=== PATIENT | female | born 1935 | race Caucasian/White ===

== ENCOUNTER 2016-12-12 16:27 | Inpatient (IN) | payer MEDICARE, MEDICAID ==
[2016-12-12 16:27] VITALS: BMI 37.8
[2016-12-12] MEDS ORDERED: Sodium Chloride 0.9% 500 ML IV ONE ×2 (16:55→17:07)
[2016-12-12 17:09] LABS: BASO % 0.2 % (0.0-2.0); EOS # 0.2 K/uL (0.0-0.7); EOS % 1.4 % (0.0-4.0); HEMATOCRIT 32.5 % (34.0-47.0); LYMPH # 1.6 K/uL (1.0-4.3); LYMPH % 11.6 % (20.0-40.0); MEAN CELL VOLUME 77.4 fL (81.0-99.0); MEAN CORPUSCULAR HEMOGLOBIN 23.8 pg (27.0-31.0); MEAN CORPUSCULAR HGB CONC 30.7 g/dL (33.0-37.0); MEAN PLATELET VOLUME 8.7 fL (7.2-11.7); MONO # 0.4 K/uL (0.0-0.8); MONO % 3.1 % (0.0-10.0); RED CELL DISTRIBUTION WIDTH 16.2 % (11.5-14.5); WHITE BLOOD COUNT 13.4 K/uL (4.8-10.8)
[2016-12-12 17:18] LABS: CHLORIDE 102 mmol/L (98-107)
[2016-12-12 17:19] LABS: POTASSIUM 4.8 mmol/L (3.6-5.2); SODIUM 138 mmol/L (132-148)
[2016-12-12 17:21] LABS: ALB/GLOB RATIO 0.8 (1.0-2.1); ALKALINE PHOSPHATASE 98 U/L (38-126); ALT/SGPT 18 U/L (9-52); AST/SGOT 12 U/L (14-36); BILIRUBIN,TOTAL 0.3 mg/dL (0.2-1.3); BLOOD UREA NITROGEN 38 mg/dL (7-17); CALCIUM 8.6 mg/dl (8.6-10.4); CARBON DIOXIDE 25 mmol/L (22-30); GFR AFRICAN-AMERICAN 52; GLUCOSE,RANDOM 289 mg/dL (65-105); TOTAL PROTEIN 6.8 g/dL (6.3-8.3)
--- NOTE | 2016-12-12 17:49 | CT ---
PROCEDURE: CT Abdomen and Pelvis without intravenous contrast HISTORY: Back pain, RUQ pain, dysuria/hematuria COMPARISON: None. TECHNIQUE: CT scan of the abdomen and pelvis was performed without administration of intravenous contrast. Oral contrast was not administered. Coronal and sagittal reformatted images were obtained. Radiation dose: Total exam DLP = 1100.56 mGy-cm. This CT exam was performed using one or more of the following dose reduction techniques: Automated exposure control, adjustment of the mA and/or kV according to patient size, and/or use of iterative reconstruction technique. FINDINGS: LOWER THORAX: The lung bases are clear. LIVER: The the liver is normal in size. No intrahepatic biliary ductal dilatation. GALLBLADDER AND BILE DUCTS: Surgically absent. PANCREAS: Normal in size. No gross lesion or ductal dilatation. SPLEEN: Normal in size. ADRENALS: Both adrenal glands are normal in size without discrete nodule. KIDNEYS AND URETERS: Both kidneys are mildly atrophic and there is nonspecific perinephric fat stranding. There is no hydronephrosis or nephrolithiasis. There is a 7.1 x 6.5 cm rim calcified simple cyst in the upper pole of the left kidney. VASCULATURE: There are atherosclerotic aortoiliac calcifications. No aortic aneurysm. BOWEL: The small bowel loops are normal in caliber. The colon is unremarkable. APPENDIX: Normal appendix. PERITONEUM: No free fluid. No free air. LYMPH NODES: Unremarkable. No enlarged lymph nodes. BLADDER: Unremarkable. REPRODUCTIVE: Unremarkable. BONES: No acute fracture. There is diffuse bone demineralization and multilevel degenerative changes in the spine. OTHER FINDINGS: None. IMPRESSION: 1. No acute abdominal or pelvic abnormality. 2. 7.1 x 6.5 cm rim calcified simple cyst in the upper pole of the left kidney.
[2016-12-12 18:19] LABS: RBC URINE 1630 /hpf (0-3); URINE BACTERIA MOD (<OCC); URINE BILIRUBIN NEGATIVE (NEGATIVE); URINE BLOOD 3+ (NEGATIVE); URINE COLOR Red (YELLOW); URINE GLUCOSE (UA) NORMAL (Normal); URINE HYALINE CAST >20 /lpf (0-2); URINE KETONE NEGATIVE (NEGATIVE); URINE LEUKOCYTE ESTERASE 3+ Leu/uL (Negative); URINE PROTEIN 2+ mg/dL (NEGATIVE); URINE UROBILINOGEN NORMAL mg/dL (0.2-1.0); WBC URINE 326 /hpf (0-5)
[2016-12-12] MEDS ORDERED: cefTRIAXone IV 1 gm in Dextros 50 ML IVPB STA (19:03)
--- NOTE | 2016-12-12 19:21 | C.PDOC ---
Time Seen by Provider: 12/12/16 16:44 Chief Complaint (Nursing): Female Genitourinary History Per: Patient, Family Onset/Duration Of Symptoms: Days (1) Current Symptoms Are (Timing): Still Present Severity: Moderate Location Of Pain/Discomfort: RUQ Radiation Of Pain To:: Back Associated Symptoms: Back Pain, Urinary Symptoms Alleviating Factors: None Additional History Per: Prior Records Past Medical History Reviewed: Historical Data, Nursing Documentation, Vital Signs Vital Signs: Last Vital Signs Temp 98.1 F 12/12/16 16:33 Pulse 90 12/12/16 17:39 Resp 17 12/12/16 17:39 BP 126/58 L 12/12/16 17:39 Pulse Ox 95 12/12/16 17:39 - Medical History PMH: Asthma, CAD, Diabetes, HTN, Hypercholesterolemia Surgical History: Cholecystectomy, Coronary Stent - [facility] Procedures CORONAR ARTERIOGR-2 CATH (08/18/13) ENDO EXCISION/DEST OF LESION OR TISSUE OF STOMACH (04/19/05) ENDO RECTUM POLYPECTOMY (04/01/05) ENDOSC POLYPECTOMY OF LG INTEST (04/01/05) INJECT/INFUSE NEC (08/10/13) INJECT/INFUSE PLATELET INHIBITOR (08/18/13) INSERTION OF ONE VASCULAR STENT (07/30/13) INSERTION OF TWO VASCULAR STENTS (08/18/13) INSRT OF DRUG-ELUTING CORON ARTERY STENTS(S) (08/18/13) LEFT HEART CARDIAC CATH (08/18/13) LT HEART ANGIOCARDIOGRAM (08/18/13) NON-INVASIVE MECHANICAL VENTILATION (08/18/13) OCCUPATIONAL THERAPY (10/18/11) PACKED CELL TRANSFUSION (08/18/13) PERCUTANEOUS TRANSLUMINAL CORONARY ANGIOPLASTY [PTCA] (08/18/13) PHYSICAL THERAPY NEC (10/18/11) PROCEDURE ON SINGLE VESSEL (08/18/13) VACCINATION NEC (08/18/13) Family History: States: Unknown Family Hx - Social History Hx Tobacco Use: No Hx Alcohol Use: No Hx Substance Use: No - Immunization History Hx Tetanus Toxoid Vaccination: No Hx Influenza Vaccination: No Hx Pneumococcal Vaccination: No Review Of Systems Except As Marked, All Systems Reviewed And Found Negative. Constitutional: Positive for: Malaise Cardiovascular: Negative for: Chest Pain Respiratory: Negative for: Shortness of Breath Gastrointestinal: Negative for: Vomiting, Diarrhea Genitourinary: Positive for: Dysuria, Hematuria Musculoskeletal: Positive for: Back Pain. Negative for: Neck Pain Neurological: Negative for: Weakness, Numbness, Seizures, Altered Mental Status Physical Exam - Physical Exam Appears: No Acute Distress Skin: Normal Color, Warm, Dry Head: Atraumatic, Normacephalic Eye(s): bilateral: PERRL, EOMI Neck: Normal ROM, Supple Cardiovascular: Rhythm Regular Respiratory: Normal Breath Sounds, No Accessory Muscle Use Gastrointestinal/Abdominal: Soft, No Tenderness Back: CVA Tenderness (?) Extremity: Normal ROM Neurological/Psych: Oriented x3, Normal Motor, Normal Sensation ED Course And Treatment - Laboratory Results Result Diagrams: 12/12/16 17:01 12/12/16 17:01 Interpretation Of Abnormal: UTI ECG: Interpreted By Me, Viewed By Me ECG Rhythm: Sinus Rhythm, Nonspecific Changes ECG Interpretation: No Acute Changes Rate From EC O2 Sat by Pulse Oximetry: 95 Pulse Ox Interpretation: Normal - CT Scan/US CT Abdomen/pelvis Other Rad Studies (CT/US): Read By Radiologist, Radiology Report Reviewed CT/US Interpretation: IMPRESSION: 1. No acute abdominal or pelvic abnormality. 2. 7.1 x 6.5 cm rim calcified simple cyst in the upper pole of the left kidney. Disposition Discussed With : Radha Ferris Comment: He accepted pt on his service and gave admitting orders to the nurse. Doctor Will See Patient In The: Hospital Counseled Patient/Family Regarding: Studies Performed, Diagnosis - Disposition Disposition: HOSPITALIZED Disposition Time: 19:24 Condition: FAIR - Clinical Impression Clinical Impression: UTI (urinary tract infection), Renal cyst, left, Hematuria
[2016-12-12] MEDS ORDERED: cefTRIAXone IV 1 gm in Dextros 50 ML IVPB ONE (19:23)
[2016-12-12] MEDS ORDERED: Moxifloxacin IV 400mg/250ml NS 400 MG/250 ML BAG IVPB SCH (22:00)
[2016-12-12] MEDS: (Novolog) Insulin Aspart, Recombinant 100 u/ml 10 ml vial SC SCH (23:02)
[2016-12-13] MEDS: (Novolog Mix 70/30) Insulin Aspart/Insulin Aspar 100 units/ml SC SCH ×2 (07:54→16:30)
[2016-12-13] MEDS: (Novolog) Insulin Aspart, Recombinant 100 u/ml 10 ml vial SC SCH ×4 (07:54→22:24)
[2016-12-13] MEDS: Pantoprazole 40 mg EC Tab PO SCH (10:10)
--- NOTE | 2016-12-13 10:30 | CP.PCM.CON ---
History of Present Illness - History of Present Illness History of Present Illness: 81 yo female with hx DMII, CAD, HTN, HLD, OBESITY is admitted with fever and abd pain rx for sepsis in progress believed to be secondary to UTI PMH: Asthma, CAD, Diabetes, HTN, Hypercholesterolemia Surgical History: Cholecystectomy, Coronary Stent Review of Systems - Constitutional Constitutional: Anorexia, Fever, Malaise - EENT Eyes: absent: As Per HPI, Blind Spots, Blurred Vision, Change in Vision, Decreased Night Vision, Diplopia, Discharge, Dry Eye, Exophthalmos, Floaters, Irritation, Itchy Eyes, Loss of Peripheral Vision, Pain, Photophobia, Requires Corrective Lenses, Sees Flashes, Spots in Vision, Tunnel Vision, Other Visual Disturbances, Loss of Vision, Other Ears: absent: As Per HPI, Decreased Hearing, Ear Discharge, Ear Pain, Tinnitus, Abnormal Hearing, Disequilibrium, Dizziness, Other Nose/Mouth/Throat: absent: As Per HPI, Epistaxis, Nasal Congestion, Nasal Discharge, Nasal Obstruction, Nasal Trauma, Nose Pain, Post Nasal Drip, Sinus Pain, Sinus Pressure, Bleeding Gums, Change in Voice, Dental Pain, Dry Mouth, Dysphagia, Halitosis, Hoarsness, Lip Swelling, Mouth Lesions, Mouth Pain, Odynophagia, Sore Throat, Throat Swelling, Tongue Swelling, Facial Pain, Neck Pain, Neck Mass, Other - Breasts Breasts: absent: As Per HPI, Change in Shape, Mass, Pain, Nipple Discharge, Nipple Inversion, Skin Changes, Swelling, Other - Cardiovascular Cardiovascular: absent: As Per HPI, Acrocyanosis, Chest Pain, Chest Pain at Rest , Chest Pain with Activity, Claudication, Diaphoresis, Dyspnea, Dyspnea on Exertion, Edema, Irregular Heart Rhythm, Pain Radiating to Arm/Neck/Jaw, Leg Edema, Leg Ulcers, Lightheadedness, Orthopnea, Palpitations, Paroxysmal Nocturnal Dyspnea, Pedal Edema, Radiating Pain, Rapid Heart Rate, Slow Heart Rate, Syncope, Other - Respiratory Respiratory: absent: As Per HPI, Cough, Dyspnea, Hemoptysis, Dyspnea on Exertion , Wheezing, Snoring, Stridor, Pain on Inspiration, Chest Congestion, Excessive Mucous Production, Change in Mucous Color, Pain with Coughing, Other - Gastrointestinal Gastrointestinal: As Per HPI, Abdominal Pain - Genitourinary Genitourinary: As Per HPI, Change in Urinary Stream, Urinary Frequency - Reproductive: Female Reproductive:Female: absent: As Per HPI, Amenorrhea, Amenorrhea/ Control, Currently Menstual, Cycle <21 Days, Cycle >35 Days, Cycle Variable, Menses 1-7 Days, Menses >/= 8 Days, Menses Variable, Cycle > 4 Weeks Between, No Menses for 6 Months, Heavy Menses, Light Menses, Normal Menses, Spotting Between Cycles , S/P Hysterectomy, Menopausal, Post Menopausal, Premenarche, Abnormal Vaginal Bleeding, Dysmenorrhea, Dyspareunia, Genital Lesions, Genital Pruritis, Pelvic Pain, Prolapse Symptoms, Sexual Dysfunction, Vaginal Discharge, Vaginal Dryness , Vaginal Odor, Vaginal Pruritis, Other - Menstruation Menstruation: absent: As Per HPI, Amenorrhea, Amenorrhea/ Control, Currently Menstual, Cycle <21 Days, Cycle >35 Days, Cycle Variable, Menses 1-7 Days, Menses >/= 8 Days, Menses Variable, Cycle > 4 Weeks Between, No Menses for 6 Months, Heavy Menses, Light Menses, Normal Menses, Spotting Between Cycles , S/P Hysterectomy, Menopausal, Post Menopausal, Premenarche, Abnormal Vaginal Bleeding, Dysmenorrhea, Other - Musculoskeletal Musculoskeletal: Abnormal Gait - Integumentary Integumentary: absent: As Per HPI, Acne, Alopecia, Bleeding Lesions, Change in Hair, Change in Nails, Change in Pigmentation, Changing Lesions, Dry Skin, Erythema, Furuncle, Hirsutism, Lesions, New Lesions, Non-Healing Lesions, Photosensitivity, Pruritus, Rash, Skin Pain, Skin Ulcer, Sores, Striae, Swelling , Unusual Bruising, Wounds, Jaundice, Other - Neurological Neurological: absent: As Per HPI, Abnormal Gait, Abnormal Hearing, Abnormal Movements, Abnormal Speech, Behavioral Changes, Burning Sensations, Confusion, Convulsions, Disequilibrium, Dizziness, Numbness, Focal Weakness, Frequent Falls , Headaches, Lack of Coordination, Loss of Vision, Memory Loss, Paresthesias, Radicular Pain, Restless Legs, Sensory Deficit, Syncope, Tingling, Tremor, Vertigo, Weakness, Other Visual Disturbances, Other - Psychiatric Psychiatric: absent: As Per HPI, Abnormal Sleep Pattern, Anhedonia, Anxiety, Auditory Hallucinations, Behavioral Changes, Change in Appetite, Change in Libido, Confusion, Depression, Difficulty Concentrating, Hallucinations, Homicidal Ideation, Hopelessness, Irritability, Memory Loss, Mood Swings, Panic Attacks, Paranoia, Suicidal Ideation, Visual Hallucinations, Tactile Hallucinations, Other Past Patient History - Infectious Disease Hx of Infectious Diseases: None - Tetanus Immunizations Tetanus Immunization: Unknown - Past Medical History & Family History Past Medical History?: Yes - Past Social History Smoking Status: Never Smoked - CARDIAC Hx Hypercholesterolemia: Yes Hx Hypertension: Yes - PULMONARY Hx Asthma: Yes - NEUROLOGICAL Hx Neurological Disorder: No - HEENT Hx HEENT Problems: No Hx Cataracts: Yes (LASER SURGERY-CATARACT SX) - RENAL Hx Chronic Kidney Disease: No - ENDOCRINE/METABOLIC Hx Endocrine Disorders: Yes (diabetes, takes po and insulin) Hx Diabetes Mellitus Type 1: Yes Hx Diabetes Mellitus Type 2: Yes - HEMATOLOGICAL/ONCOLOGICAL Hx Blood Disorders: No - INTEGUMENTARY Hx Dermatological Problems: No - MUSCULOSKELETAL/RHEUMATOLOGICAL Hx Falls: No - GASTROINTESTINAL Hx Gastrointestinal Disorders: (ABDOMINAL DISTENTION) - GENITOURINARY/GYNECOLOGICAL Hx Genitourinary Disorders: No - PSYCHIATRIC Hx Substance Use: No - SURGICAL HISTORY Hx Cholecystectomy: Yes Hx Coronary Stent: Yes - ANESTHESIA Hx Anesthesia: Yes Hx Anesthesia Reactions: No Hx Malignant Hyperthermia: No Meds Allergies/Adverse Reactions: Allergies Allergy/AdvReac Type Severity Reaction Status Date / Time iodine Allergy ANAPHYLAXIS Verified 12/12/16 16:37 - Medications Medications: Current Medications Aspirin (Aspirin Chewable) 81 mg PO DAILY [facility] Last Admin: 12/13/16 10:09 Dose: 81 mg Clopidogrel Bisulfate (Plavix) 75 mg PO DAILY [facility] Last Admin: 12/13/16 10:10 Dose: 75 mg Furosemide (Lasix) 40 mg PO DAILY [facility] Last Admin: 12/13/16 10:10 Dose: 40 mg Glimepiride (Amaryl) 4 mg PO BID [facility] Last Admin: 12/13/16 10:09 Dose: 4 mg Moxifloxacin HCl (Avelox Iv 400mg/250ml Ns) 400 mg in 250 mls @ 167 mls/hr IVPB Q24H [facility] Last Admin: 12/12/16 23:06 Dose: 167 mls/hr Insulin Aspart (Novolog Mix 70/30 (70/30 Units/Ml)) 20 units SC ACD [facility] Insulin Aspart (Novolog Mix 70/30 (70/30 Units/Ml)) 30 units SC ACB [facility] Last Admin: 12/13/16 07:54 Dose: 30 units Insulin Aspart (Novolog) 0 unit SC ACHS [facility] PRN Reason: Protocol Last Admin: 12/13/16 07:54 Dose: 1 unit Isosorbide Mononitrate (Imdur) 30 mg PO DAILY [facility] Last Admin: 12/13/16 10:09 Dose: 30 mg Losartan Potassium (Cozaar) 50 mg PO DAILY [facility] Last Admin: 12/13/16 10:09 Dose: 50 mg Metformin HCl (Glucophage) 1,000 mg PO BID [facility] Last Admin: 12/13/16 10:10 Dose: 1,000 mg Metoprolol Tartrate (Lopressor) 50 mg PO BID [facility] Last Admin: 12/13/16 10:10 Dose: 50 mg Pantoprazole Sodium (Protonix Ec Tab) 40 mg PO DAILY [facility] Last Admin: 12/13/16 10:10 Dose: 40 mg Rosuvastatin Calcium (Crestor) 10 mg PO HS [facility] Last Admin: 12/12/16 23:06 Dose: 10 mg Tramadol HCl (Ultram) 50 mg PO Q6 PRN PRN Reason: Pain, moderate (4-7) Physical Exam - Constitutional Appears: Toxic, In Acute Distress - Head Exam Head Exam: ATRAUMATIC, NORMAL INSPECTION, NORMOCEPHALIC - Eye Exam Eye Exam: PERRL. absent: Scleral icterus - ENT Exam ENT Exam: Mucous Membranes Dry, Normal External Ear Exam - Neck Exam Neck exam: Negative for: Lymphadenopathy - Respiratory Exam Respiratory Exam: Decreased Breath Sounds, Rhonchi - Cardiovascular Exam Cardiovascular Exam: Tachycardia, REGULAR RHYTHM, +S1, +S2 - GI/Abdominal Exam GI & Abdominal Exam: Diminished Bowel Sounds, Distended, Soft. absent: Tenderness - Rectal Exam Rectal Exam: Deferred - Exam Exam: NORMAL INSPECTION - Extremities Exam Extremities exam: Positive for: pedal pulses present. Negative for: calf tenderness, pedal edema, tenderness - Back Exam Back exam: absent: CVA tenderness (L), CVA tenderness (R), paraspinal tenderness - Neurological Exam Neurological exam: Alert, CN II-XII Intact, Oriented x3, Reflexes Normal - Psychiatric Exam Psychiatric exam: Depressed - Skin Skin Exam: Dry, Intact Results - Vital Signs Recent Vital Signs: Last Vital Signs Temp 97.8 F 12/13/16 07:46 Pulse 79 12/13/16 07:46 Resp 20 12/13/16 07:46 BP 112/69 12/13/16 10:10 Pulse Ox 97 12/13/16 07:46 - Labs Result Diagrams: 12/12/16 17:01 12/12/16 17:01 Labs: Laboratory Results - last 24 hr 12/12/16 12/13/16 22:57 07:05 POC Glucose (mg/dL) 307 H 189 H Assessment & Plan (1) Hematuria Status: Acute (2) Renal cyst, left Status: Acute (3) UTI (urinary tract infection) Status: Acute - Assessment and Plan (Free Text) Assessment: await imaging, eval cont IV antibiotics
[2016-12-13] MEDS ORDERED: Aluminum Hydroxide/Magnesium Hydroxide Susp (30 mL) PO ONE (12:00)
[2016-12-13] MEDS: Cefepime IV 1 gm in Dextrose 1 GM/50 ML BAG IVPB SCH ×2 (12:05→22:25)
--- NOTE | 2016-12-13 15:43 | CP.PCM.CON ---
Past Patient History - Infectious Disease Hx of Infectious Diseases: None - Tetanus Immunizations Tetanus Immunization: Unknown - Past Medical History & Family History Past Medical History?: Yes - Past Social History Smoking Status: Never Smoked - CARDIAC Hx Cardiac Disorders: Yes Hx Hypercholesterolemia: Yes Hx Hypertension: Yes - PULMONARY Hx Asthma: Yes - NEUROLOGICAL Hx Neurological Disorder: No - HEENT Hx HEENT Problems: No Hx Cataracts: Yes (LASER SURGERY-CATARACT SX) - RENAL Hx Chronic Kidney Disease: No - ENDOCRINE/METABOLIC Hx Diabetes Mellitus Type 1: Yes (PER PATIENT TAKES INSULIN) - HEMATOLOGICAL/ONCOLOGICAL Hx Blood Disorders: No - INTEGUMENTARY Hx Dermatological Problems: No - MUSCULOSKELETAL/RHEUMATOLOGICAL Hx Arthritis: Yes (BACK; HIP AND KNEES) - GASTROINTESTINAL Hx Gastrointestinal Disorders: (ABDOMINAL DISTENTION) - GENITOURINARY/GYNECOLOGICAL Hx Genitourinary Disorders: No - PSYCHIATRIC Hx Substance Use: No - SURGICAL HISTORY Hx Cholecystectomy: Yes Hx Coronary Stent: Yes - ANESTHESIA Hx Anesthesia: Yes Hx Anesthesia Reactions: No Hx Malignant Hyperthermia: No Meds Allergies/Adverse Reactions: Allergies Allergy/AdvReac Type Severity Reaction Status Date / Time iodine Allergy ANAPHYLAXIS Verified 12/12/16 16:37 - Medications Medications: Current Medications Aspirin (Aspirin Chewable) 81 mg PO DAILY [facility] Last Admin: 12/13/16 10:09 Dose: 81 mg Clopidogrel Bisulfate (Plavix) 75 mg PO DAILY [facility] Last Admin: 12/13/16 10:10 Dose: 75 mg Furosemide (Lasix) 40 mg PO DAILY [facility] Last Admin: 12/13/16 10:10 Dose: 40 mg Glimepiride (Amaryl) 4 mg PO BID [facility] Last Admin: 12/13/16 10:09 Dose: 4 mg Cefepime HCl (Maxipime Iv 1 Gm Premix) 1 gm in 50 mls @ 100 mls/hr IVPB Q12H [facility] Last Admin: 12/13/16 12:05 Dose: 100 mls/hr Insulin Aspart (Novolog Mix 70/30 (70/30 Units/Ml)) 20 units SC ACD [facility] Insulin Aspart (Novolog Mix 70/30 (70/30 Units/Ml)) 30 units SC ACB [facility] Last Admin: 12/13/16 07:54 Dose: 30 units Insulin Aspart (Novolog) 0 unit SC ACHS [facility] PRN Reason: Protocol Last Admin: 12/13/16 12:05 Dose: 1 unit Isosorbide Mononitrate (Imdur) 30 mg PO DAILY [facility] Last Admin: 12/13/16 10:09 Dose: 30 mg Losartan Potassium (Cozaar) 50 mg PO DAILY [facility] Last Admin: 12/13/16 10:09 Dose: 50 mg Metformin HCl (Glucophage) 1,000 mg PO BID [facility] Last Admin: 12/13/16 10:10 Dose: 1,000 mg Metoprolol Tartrate (Lopressor) 50 mg PO BID [facility] Last Admin: 12/13/16 10:10 Dose: 50 mg Pantoprazole Sodium (Protonix Ec Tab) 40 mg PO DAILY [facility] Last Admin: 12/13/16 10:10 Dose: 40 mg Rosuvastatin Calcium (Crestor) 10 mg PO [facility] Last Admin: 12/12/16 23:06 Dose: 10 mg Tramadol HCl (Ultram) 50 mg PO Q6 PRN PRN Reason: Pain, moderate (4-7) Last Admin: 12/13/16 10:43 Dose: 50 mg Results - Vital Signs Recent Vital Signs: Last Vital Signs Temp 97.8 F 12/13/16 07:46 Pulse 88 12/13/16 14:56 Resp 20 12/13/16 07:46 BP 112/69 12/13/16 10:10 Pulse Ox 97 12/13/16 14:56 - Labs Result Diagrams: 12/12/16 17:01 12/12/16 17:01 Labs: Laboratory Results - last 24 hr 12/12/16 12/13/16 12/13/16 22:57 07:05 11:27 POC Glucose (mg/dL) 307 H 189 H 187 H
--- NOTE | 2016-12-13 16:05 | CP.PCM.HP ---
Past Patient History - Infectious Disease Hx of Infectious Diseases: None - Tetanus Immunizations Tetanus Immunization: Unknown - Past Medical History & Family History Past Medical History?: Yes - Past Social History Smoking Status: Never Smoked - CARDIAC Hx Cardiac Disorders: Yes Hx Hypercholesterolemia: Yes Hx Hypertension: Yes - PULMONARY Hx Asthma: Yes - NEUROLOGICAL Hx Neurological Disorder: No - HEENT Hx HEENT Problems: No Hx Cataracts: Yes (LASER SURGERY-CATARACT SX) - RENAL Hx Chronic Kidney Disease: No - ENDOCRINE/METABOLIC Hx Diabetes Mellitus Type 1: Yes (PER PATIENT TAKES INSULIN) - HEMATOLOGICAL/ONCOLOGICAL Hx Blood Disorders: No - INTEGUMENTARY Hx Dermatological Problems: No - MUSCULOSKELETAL/RHEUMATOLOGICAL Hx Arthritis: Yes (BACK; HIP AND KNEES) - GASTROINTESTINAL Hx Gastrointestinal Disorders: (ABDOMINAL DISTENTION) - GENITOURINARY/GYNECOLOGICAL Hx Genitourinary Disorders: No - PSYCHIATRIC Hx Substance Use: No - SURGICAL HISTORY Hx Cholecystectomy: Yes Hx Coronary Stent: Yes - ANESTHESIA Hx Anesthesia: Yes Hx Anesthesia Reactions: No Hx Malignant Hyperthermia: No Meds Allergies/Adverse Reactions: Allergies Allergy/AdvReac Type Severity Reaction Status Date / Time iodine Allergy ANAPHYLAXIS Verified 12/12/16 16:37 Physical Exam - Constitutional Appears: Well - Head Exam Head Exam: ATRAUMATIC, NORMAL INSPECTION, NORMOCEPHALIC - Eye Exam Eye Exam: EOMI, Normal appearance, PERRL Pupil Exam: NORMAL ACCOMODATION, PERRL - ENT Exam ENT Exam: Mucous Membranes Moist, Normal Exam - Neck Exam Neck exam: Positive for: Normal Inspection - Respiratory Exam Respiratory Exam: Decreased Breath Sounds - Cardiovascular Exam Cardiovascular Exam: REGULAR RHYTHM, +S1, +S2 - GI/Abdominal Exam GI & Abdominal Exam: Diminished Bowel Sounds, Soft - Rectal Exam Rectal Exam: Deferred Results - Vital Signs Recent Vital Signs: Last Vital Signs Temp 97.8 F 12/13/16 07:46 Pulse 88 12/13/16 14:56 Resp 20 12/13/16 07:46 BP 112/69 12/13/16 10:10 Pulse Ox 97 12/13/16 14:56 - Labs Result Diagrams: 12/12/16 17:01 12/12/16 17:01 Labs: Laboratory Results - last 24 hr 12/12/16 12/13/16 12/13/16 22:57 07:05 11:27 POC Glucose (mg/dL) 307 H 189 H 187 H
--- NOTE | 2016-12-14 07:54 | CARD ---
APPROVED REPORT EKG Measurement Heart [id number] ID [id number] <Conclusion> Sinus rhythm with occasional ventricular-paced complexes Low voltage QRS Possible Inferior infarct, age undetermined Abnormal ECG
[2016-12-14] MEDS: (Novolog) Insulin Aspart, Recombinant 100 u/ml 10 ml vial SC SCH ×4 (08:17→22:35)
[2016-12-14] MEDS: (Novolog Mix 70/30) Insulin Aspart/Insulin Aspar 100 units/ml SC SCH ×2 (08:19→16:30)
[2016-12-14] MEDS: Pantoprazole 40 mg EC Tab PO SCH (09:33)
[2016-12-14] MEDS: Cefepime IV 1 gm in Dextrose 1 GM/50 ML BAG IVPB SCH ×2 (13:23→22:33)
[2016-12-14 14:16] LABS: BASO % 0.4 % (0.0-2.0); EOS # 0.2 K/uL (0.0-0.7); EOS % 2.2 % (0.0-4.0); HEMATOCRIT 32.5 % (34.0-47.0); LYMPH # 1.6 K/uL (1.0-4.3); LYMPH % 15.8 % (20.0-40.0); MEAN CELL VOLUME 78.1 fL (81.0-99.0); MEAN CORPUSCULAR HEMOGLOBIN 24.5 pg (27.0-31.0); MEAN CORPUSCULAR HGB CONC 31.3 g/dL (33.0-37.0); MEAN PLATELET VOLUME 8.4 fL (7.2-11.7); MONO # 0.5 K/uL (0.0-0.8); MONO % 4.7 % (0.0-10.0); NRBC % 0.1 % (0.0-2.0); RED CELL DISTRIBUTION WIDTH 15.9 % (11.5-14.5); WHITE BLOOD COUNT 10.1 K/uL (4.8-10.8)
[2016-12-14 14:24] LABS: POTASSIUM 4.6 mmol/L (3.6-5.2)
[2016-12-14 14:27] LABS: ALB/GLOB RATIO 0.9 (1.0-2.1); BILIRUBIN,TOTAL 0.4 mg/dL (0.2-1.3); CALCIUM 8.8 mg/dl (8.6-10.4); TOTAL PROTEIN 6.5 g/dL (6.3-8.3)
--- NOTE | 2016-12-14 14:57 | CP.PCM.PN ---
Subjective - Date & Time of Evaluation Date of Evaluation: 12/14/16 Time of Evaluation: 14:57 Objective - Vital Signs/Intake and Output Vital Signs (last 24 hours): Temp Pulse Resp BP Pulse Ox 98.5 F 70 20 130/70 97 12/14/16 07:00 12/14/16 07:00 12/14/16 07:00 12/14/16 09:33 12/14/16 07:00 Intake and Output: 12/14/16 12/14/16 06:59 18:59 Intake Total 550 900 Balance 550 900 - Medications Medications: Current Medications Aspirin (Aspirin Chewable) 81 mg PO DAILY [facility] Last Admin: 12/14/16 09:34 Dose: 81 mg Clopidogrel Bisulfate (Plavix) 75 mg PO DAILY [facility] Last Admin: 12/14/16 09:33 Dose: 75 mg Furosemide (Lasix) 40 mg PO DAILY [facility] Last Admin: 12/14/16 09:33 Dose: 40 mg Glimepiride (Amaryl) 4 mg PO BID [facility] Last Admin: 12/14/16 09:32 Dose: 4 mg Cefepime HCl (Maxipime Iv 1 Gm Premix) 1 gm in 50 mls @ 100 mls/hr IVPB Q12H [facility] Last Admin: 12/14/16 13:23 Dose: 100 mls/hr Insulin Aspart (Novolog Mix 70/30 (70/30 Units/Ml)) 20 units SC ACD [facility] Last Admin: 12/13/16 16:30 Dose: 20 units Insulin Aspart (Novolog Mix 70/30 (70/30 Units/Ml)) 30 units SC ACB [facility] Last Admin: 12/14/16 08:19 Dose: 30 units Insulin Aspart (Novolog) 0 unit SC ACHS [facility] PRN Reason: Protocol Last Admin: 12/14/16 13:26 Dose: 1 unit Isosorbide Mononitrate (Imdur) 30 mg PO DAILY [facility] Last Admin: 12/14/16 10:30 Dose: 30 mg Losartan Potassium (Cozaar) 50 mg PO DAILY [facility] Last Admin: 12/14/16 09:32 Dose: 50 mg Metformin HCl (Glucophage) 1,000 mg PO BID [facility] Last Admin: 12/14/16 09:32 Dose: 1,000 mg Metoprolol Tartrate (Lopressor) 50 mg PO BID [facility] Last Admin: 12/14/16 09:33 Dose: 50 mg Pantoprazole Sodium (Protonix Ec Tab) 40 mg PO DAILY [facility] Last Admin: 12/14/16 09:33 Dose: 40 mg Rosuvastatin Calcium (Crestor) 10 mg PO HS [facility] Last Admin: 12/13/16 22:21 Dose: 10 mg Tramadol HCl (Ultram) 50 mg PO Q6 PRN PRN Reason: Pain, moderate (4-7) Last Admin: 12/13/16 10:43 Dose: 50 mg - Labs Labs: 12/14/16 14:04 12/14/16 14:04 PT 11.5 SECONDS (9.7-12.2) 12/12/16 17:01 INR 1.0 12/12/16 17:01 APTT 22 SECONDS (21-34) 12/12/16 17:01
--- NOTE | 2016-12-14 15:26 | CP.PCM.PN ---
Subjective - Date & Time of Evaluation Date of Evaluation: 12/14/16 Time of Evaluation: 09:00 - Subjective Subjective: clinically same Objective - Vital Signs/Intake and Output Vital Signs (last 24 hours): Temp Pulse Resp BP Pulse Ox 98.5 F 70 20 130/70 97 12/14/16 07:00 12/14/16 07:00 12/14/16 07:00 12/14/16 15:08 12/14/16 07:00 Intake and Output: 12/14/16 12/14/16 06:59 18:59 Intake Total 550 900 Balance 550 900 - Medications Medications: Current Medications Aspirin (Aspirin Chewable) 81 mg PO DAILY [facility] Last Admin: 12/14/16 09:34 Dose: 81 mg Clopidogrel Bisulfate (Plavix) 75 mg PO DAILY [facility] Last Admin: 12/14/16 09:33 Dose: 75 mg Furosemide (Lasix) 40 mg PO DAILY [facility] Last Admin: 12/14/16 09:33 Dose: 40 mg Glimepiride (Amaryl) 4 mg PO BID [facility] Last Admin: 12/14/16 09:32 Dose: 4 mg Cefepime HCl (Maxipime Iv 1 Gm Premix) 1 gm in 50 mls @ 100 mls/hr IVPB Q12H [facility] Last Admin: 12/14/16 13:23 Dose: 100 mls/hr Insulin Aspart (Novolog Mix 70/30 (70/30 Units/Ml)) 20 units SC ACD [facility] Last Admin: 12/13/16 16:30 Dose: 20 units Insulin Aspart (Novolog Mix 70/30 (70/30 Units/Ml)) 30 units SC ACB [facility] Last Admin: 12/14/16 08:19 Dose: 30 units Insulin Aspart (Novolog) 0 unit SC ACHS [facility] PRN Reason: Protocol Last Admin: 12/14/16 13:26 Dose: 1 unit Isosorbide Mononitrate (Imdur) 30 mg PO DAILY [facility] Last Admin: 12/14/16 10:30 Dose: 30 mg Losartan Potassium (Cozaar) 50 mg PO DAILY [facility] Last Admin: 12/14/16 09:32 Dose: 50 mg Metformin HCl (Glucophage) 1,000 mg PO BID [facility] Last Admin: 12/14/16 09:32 Dose: 1,000 mg Metoprolol Tartrate (Lopressor) 50 mg PO BID [facility] Last Admin: 12/14/16 09:33 Dose: 50 mg Pantoprazole Sodium (Protonix Ec Tab) 40 mg PO DAILY [facility] Last Admin: 12/14/16 09:33 Dose: 40 mg Rosuvastatin Calcium (Crestor) 10 mg PO HS [facility] Last Admin: 12/13/16 22:21 Dose: 10 mg Tramadol HCl (Ultram) 50 mg PO Q6 PRN PRN Reason: Pain, moderate (4-7) Last Admin: 12/13/16 10:43 Dose: 50 mg - Labs Labs: 12/14/16 14:04 12/14/16 14:04 PT 11.5 SECONDS (9.7-12.2) 12/12/16 17:01 INR 1.0 12/12/16 17:01 APTT 22 SECONDS (21-34) 12/12/16 17:01 - Constitutional Appears: Well - Head Exam Head Exam: ATRAUMATIC, NORMAL INSPECTION, NORMOCEPHALIC - Eye Exam Eye Exam: EOMI, Normal appearance, PERRL Pupil Exam: NORMAL ACCOMODATION, PERRL - ENT Exam ENT Exam: Mucous Membranes Moist, Normal Exam - Neck Exam Neck Exam: Full ROM, Normal Inspection. absent: Lymphadenopathy - Respiratory Exam Respiratory Exam: Decreased Breath Sounds - Cardiovascular Exam Cardiovascular Exam: REGULAR RHYTHM, +S1, +S2 - GI/Abdominal Exam GI & Abdominal Exam: Soft, Diminished Bowel Sounds - Rectal Exam Rectal Exam: Deferred
[2016-12-15] MEDS: (Novolog Mix 70/30) Insulin Aspart/Insulin Aspar 100 units/ml SC SCH (08:02)
[2016-12-15] MEDS: (Novolog) Insulin Aspart, Recombinant 100 u/ml 10 ml vial SC SCH ×2 (08:03→12:18)
--- NOTE | 2016-12-15 08:59 | CP.PCM.CON ---
Past Patient History - Infectious Disease Hx of Infectious Diseases: None - Tetanus Immunizations Tetanus Immunization: Unknown - Past Medical History & Family History Past Medical History?: Yes - Past Social History Smoking Status: Never Smoked - CARDIAC Hx Cardiac Disorders: Yes Hx Hypercholesterolemia: Yes Hx Hypertension: Yes - PULMONARY Hx Asthma: Yes - NEUROLOGICAL Hx Neurological Disorder: No - HEENT Hx HEENT Problems: No Hx Cataracts: Yes (LASER SURGERY-CATARACT SX) - RENAL Hx Chronic Kidney Disease: No - ENDOCRINE/METABOLIC Hx Diabetes Mellitus Type 1: Yes (PER PATIENT TAKES INSULIN) - HEMATOLOGICAL/ONCOLOGICAL Hx Blood Disorders: No - INTEGUMENTARY Hx Dermatological Problems: No - MUSCULOSKELETAL/RHEUMATOLOGICAL Hx Arthritis: Yes (BACK; HIP AND KNEES) - GASTROINTESTINAL Hx Gastrointestinal Disorders: (ABDOMINAL DISTENTION) - GENITOURINARY/GYNECOLOGICAL Hx Genitourinary Disorders: No - PSYCHIATRIC Hx Substance Use: No - SURGICAL HISTORY Hx Cholecystectomy: Yes Hx Coronary Stent: Yes - ANESTHESIA Hx Anesthesia: Yes Hx Anesthesia Reactions: No Hx Malignant Hyperthermia: No Meds Allergies/Adverse Reactions: Allergies Allergy/AdvReac Type Severity Reaction Status Date / Time iodine Allergy ANAPHYLAXIS Verified 12/12/16 16:37 - Medications Medications: Current Medications Aspirin (Aspirin Chewable) 81 mg PO DAILY [facility] Last Admin: 12/14/16 09:34 Dose: 81 mg Clopidogrel Bisulfate (Plavix) 75 mg PO DAILY [facility] Last Admin: 12/14/16 09:33 Dose: 75 mg Furosemide (Lasix) 40 mg PO DAILY [facility] Last Admin: 12/14/16 09:33 Dose: 40 mg Glimepiride (Amaryl) 4 mg PO BID [facility] Last Admin: 12/14/16 17:48 Dose: 4 mg Cefepime HCl (Maxipime Iv 1 Gm Premix) 1 gm in 50 mls @ 100 mls/hr IVPB Q12H [facility] Last Admin: 12/14/16 22:33 Dose: 100 mls/hr Insulin Aspart (Novolog Mix 70/30 (70/30 Units/Ml)) 20 units SC ACD [facility] Last Admin: 12/14/16 16:30 Dose: 20 units Insulin Aspart (Novolog Mix 70/30 (70/30 Units/Ml)) 30 units SC ACB [facility] Last Admin: 12/15/16 08:02 Dose: 30 units Insulin Aspart (Novolog) 0 unit SC ACHS [facility] PRN Reason: Protocol Last Admin: 12/15/16 08:03 Dose: 2 unit Isosorbide Mononitrate (Imdur) 30 mg PO DAILY [facility] Last Admin: 12/14/16 10:30 Dose: 30 mg Losartan Potassium (Cozaar) 50 mg PO DAILY [facility] Last Admin: 12/14/16 09:32 Dose: 50 mg Metformin HCl (Glucophage) 1,000 mg PO BID [facility] Last Admin: 12/14/16 17:48 Dose: 1,000 mg Metoprolol Tartrate (Lopressor) 50 mg PO BID [facility] Last Admin: 12/14/16 17:48 Dose: 50 mg Pantoprazole Sodium (Protonix Ec Tab) 40 mg PO DAILY [facility] Last Admin: 12/14/16 09:33 Dose: 40 mg Rosuvastatin Calcium (Crestor) 10 mg PO HS [facility] Last Admin: 12/14/16 21:55 Dose: 10 mg Tramadol HCl (Ultram) 50 mg PO Q6 PRN PRN Reason: Pain, moderate (4-7) Last Admin: 12/13/16 10:43 Dose: 50 mg Results - Vital Signs Recent Vital Signs: Last Vital Signs Temp 98.2 F 12/15/16 07:19 Pulse 70 12/15/16 07:19 Resp 20 12/15/16 07:19 BP 129/69 12/15/16 07:19 Pulse Ox 98 12/15/16 07:19 - Labs Result Diagrams: 12/14/16 14:04 12/14/16 14:04 Labs: Laboratory Results - last 24 hr 12/14/16 12/14/16 12/14/16 11:30 14:04 14:04 WBC 10.1 RBC 4.16 Hgb 10.2 L Hct 32.5 L MCV 78.1 L MCH 24.5 L MCHC 31.3 L RDW 15.9 H Plt Count 270 MPV 8.4 Neut % (Auto) 76.9 H Lymph % (Auto) 15.8 L Fajardo % (Auto) 4.7 Eos % (Auto) 2.2 Baso % (Auto) 0.4 Neut # 7.8 H Lymph # 1.6 Fajardo # 0.5 Eos # 0.2 Baso # 0.0 Sodium 139 Potassium 4.6 Chloride 106 Carbon Dioxide 25 Anion Gap 13 BUN 34 H Creatinine 1.5 H Est GFR ( Amer) 40 Est GFR (Non-Af Amer) 33 POC Glucose (mg/dL) 177 H Random Glucose 116 H Calcium 8.8 Total Bilirubin 0.4 AST 13 L ALT 9 D Alkaline Phosphatase 88 Total Protein 6.5 Albumin 3.0 L Globulin 3.5 Albumin/Globulin Ratio 0.9 L 12/14/16 12/14/16 12/15/16 16:26 21:09 07:08 WBC RBC Hgb Hct MCV MCH MCHC RDW Plt Count MPV Neut % (Auto) Lymph % (Auto) Fajardo % (Auto) Eos % (Auto) Baso % (Auto) Neut # Lymph # Fajardo # Eos # Baso # Sodium Potassium Chloride Carbon Dioxide Anion Gap BUN Creatinine Est GFR ( Amer) Est GFR (Non-Af Amer) POC Glucose (mg/dL) 137 H 171 H 195 H Random Glucose Calcium Total Bilirubin AST ALT Alkaline Phosphatase Total Protein Albumin Globulin Albumin/Globulin Ratio Assessment & Plan - Assessment and Plan (Free Text) Assessment: IMP: UTI HEMATURIA Plan: PLEASE SEE DICATATED NOTE. FULL NOTE T/F THANK YOU YS - Date & Time Date: 12/15/16 Time: 08:59
[2016-12-15] MEDS: Pantoprazole 40 mg EC Tab PO SCH (10:32)
[2016-12-15] MEDS: Cefepime IV 1 gm in Dextrose 1 GM/50 ML BAG IVPB SCH (10:56)
--- NOTE | 2016-12-15 14:08 | CP.PCM.CON ---
<Oral Duncan - Last Filed: 12/15/16 14:39> History of Present Illness - History of Present Illness History of Present Illness: PGY4 GI Fellow Consult Note Patient is an 81yo female with PMHx significant for CAD s/p PCI, HTN, HLD, obesity who presented to the ED with hematuria. [place] voice bilingual interpreter #[id number] utilized to converse with patient. The patient noted hematuria for one days duration and had her daughter bring her to the hospital for further evaluation which is ongoing. Our service has been consulted for abdominal pain. Patient states that for two days she has noticed RUQ, epigastric cramping pain. Pain is intermittent and has no relationship to meals. Nothing she has done thusfar has improved/worsened symptoms. Recently, she admits to morning time nausea with occasional watery emesis. Admits to having had similar pain in the past and underwent cholecystectomy with some relief. She has never had endoscopy but had colonoscopy in 2011 with removal of 3 polyps, one being adenomatous. She has been on dexilant previously and is currently on protonix in house. At this time, symptoms have resolved. PMHx: See HPI PSHx: Cholecystectomy, PCI, cataracts FHx: Discussed with patient and she denies any significant family history Social: Denies tobacco, EtOH or illicit drug use Endo: Colonoscopy 2011 - 3 polyps, one TA Review of Systems - Constitutional Constitutional: absent: Anorexia, Chills, Fever, Weight Loss - EENT Eyes: absent: Change in Vision Nose/Mouth/Throat: absent: Sore Throat - Cardiovascular Cardiovascular: absent: Chest Pain, Dyspnea, Palpitations - Respiratory Respiratory: absent: Cough, Dyspnea, Excessive Mucous Production - Gastrointestinal Gastrointestinal: Abdominal Pain, Cramping, Nausea, Vomiting. absent: Belching , Bloating, Constipation, Diarrhea, Dyspepsia, Dysphagia, Heartburn, Hematemesis , Hematochezia, Melena, Odynophagia, Temesmus - Genitourinary Genitourinary: absent: Dysuria, Urinary Frequency, Urinary Urgency - Musculoskeletal Musculoskeletal: absent: Back Pain, Neck Pain - Integumentary Integumentary: absent: New Lesions, Rash - Neurological Neurological: absent: Dizziness, Numbness, Focal Weakness - Psychiatric Psychiatric: absent: Anxiety, Depression - Endocrine Endocrine: absent: Polydipsia, Polyphagia, Polyuria - Hematologic/Lymphatic Hematologic: absent: Easy Bleeding, Easy Bruising, Lymphadenopathy Past Patient History - Infectious Disease Hx of Infectious Diseases: None - Tetanus Immunizations Tetanus Immunization: Unknown - Past Medical History & Family History Past Medical History?: Yes - Past Social History Smoking Status: Never Smoked - CARDIAC Hx Cardiac Disorders: Yes Hx Hypercholesterolemia: Yes Hx Hypertension: Yes - PULMONARY Hx Asthma: Yes - NEUROLOGICAL Hx Neurological Disorder: No - HEENT Hx HEENT Problems: No Hx Cataracts: Yes (LASER SURGERY-CATARACT SX) - RENAL Hx Chronic Kidney Disease: No - ENDOCRINE/METABOLIC Hx Diabetes Mellitus Type 1: Yes (PER PATIENT TAKES INSULIN) - HEMATOLOGICAL/ONCOLOGICAL Hx Blood Disorders: No - INTEGUMENTARY Hx Dermatological Problems: No - MUSCULOSKELETAL/RHEUMATOLOGICAL Hx Arthritis: Yes (BACK; HIP AND KNEES) - GASTROINTESTINAL Hx Gastrointestinal Disorders: (ABDOMINAL DISTENTION) - GENITOURINARY/GYNECOLOGICAL Hx Genitourinary Disorders: No - PSYCHIATRIC Hx Substance Use: No - SURGICAL HISTORY Hx Cholecystectomy: Yes Hx Coronary Stent: Yes - ANESTHESIA Hx Anesthesia: Yes Hx Anesthesia Reactions: No Hx Malignant Hyperthermia: No Meds Allergies/Adverse Reactions: Allergies Allergy/AdvReac Type Severity Reaction Status Date / Time iodine Allergy ANAPHYLAXIS Verified 12/12/16 16:37 - Medications Medications: Current Medications Aspirin (Aspirin Chewable) 81 mg PO DAILY [facility] Last Admin: 12/15/16 10:31 Dose: 81 mg Clopidogrel Bisulfate (Plavix) 75 mg PO DAILY [facility] Last Admin: 12/15/16 10:31 Dose: 75 mg Furosemide (Lasix) 40 mg PO DAILY [facility] Last Admin: 12/15/16 10:31 Dose: 40 mg Glimepiride (Amaryl) 4 mg PO BID [facility] Last Admin: 12/15/16 10:33 Dose: 4 mg Cefepime HCl (Maxipime Iv 1 Gm Premix) 1 gm in 50 mls @ 100 mls/hr IVPB Q12H [facility] Last Admin: 12/15/16 10:56 Dose: 100 mls/hr Insulin Aspart (Novolog Mix 70/30 (70/30 Units/Ml)) 20 units SC ACD [facility] Last Admin: 12/14/16 16:30 Dose: 20 units Insulin Aspart (Novolog Mix 70/30 (70/30 Units/Ml)) 30 units SC ACB [facility] Last Admin: 12/15/16 08:02 Dose: 30 units Insulin Aspart (Novolog) 0 unit SC ACHS [facility] PRN Reason: Protocol Last Admin: 12/15/16 12:18 Dose: Not Given Isosorbide Mononitrate (Imdur) 30 mg PO DAILY [facility] Last Admin: 12/15/16 10:32 Dose: 30 mg Losartan Potassium (Cozaar) 50 mg PO DAILY [facility] Last Admin: 12/15/16 10:32 Dose: 50 mg Metformin HCl (Glucophage) 1,000 mg PO BID [facility] Last Admin: 12/15/16 10:31 Dose: 1,000 mg Metoprolol Tartrate (Lopressor) 50 mg PO BID [facility] Last Admin: 12/15/16 10:31 Dose: 50 mg Pantoprazole Sodium (Protonix Ec Tab) 40 mg PO DAILY [facility] Last Admin: 12/15/16 10:32 Dose: 40 mg Rosuvastatin Calcium (Crestor) 10 mg PO HS [facility] Last Admin: 12/14/16 21:55 Dose: 10 mg Tramadol HCl (Ultram) 50 mg PO Q6 PRN PRN Reason: Pain, moderate (4-7) Last Admin: 12/13/16 10:43 Dose: 50 mg Physical Exam - Constitutional Appears: No Acute Distress, Other (obese) - Eye Exam Eye Exam: EOMI, PERRL - ENT Exam ENT Exam: Mucous Membranes Moist - Respiratory Exam Respiratory Exam: Clear to Auscultation Bilateral. absent: Rales, Rhonchi, Wheezes - Cardiovascular Exam Cardiovascular Exam: RRR, +S1, +S2 - GI/Abdominal Exam GI & Abdominal Exam: Normal Bowel Sounds, Soft, Tenderness (epigastric, minimal) . absent: Distended, Firm, Guarding, Organomegaly, Rigid Additional comments: protuberant - Extremities Exam Additional comments: B/L LE edema - Neurological Exam Neurological exam: Alert, Oriented x3 - Psychiatric Exam Psychiatric exam: Normal Affect, Normal Mood - Skin Skin Exam: Dry, Warm Results - Vital Signs Recent Vital Signs: Last Vital Signs Temp 98.2 F 12/15/16 07:19 Pulse 72 12/15/16 11:50 Resp 20 12/15/16 07:19 BP 129/69 12/15/16 10:31 Pulse Ox 95 12/15/16 11:50 - Labs Result Diagrams: 12/14/16 14:04 12/14/16 14:04 Labs: Laboratory Results - last 24 hr 12/14/16 12/14/16 12/14/16 14:04 14:04 16:26 WBC 10.1 RBC 4.16 Hgb 10.2 L Hct 32.5 L MCV 78.1 L MCH 24.5 L MCHC 31.3 L RDW 15.9 H Plt Count 270 MPV 8.4 Neut % (Auto) 76.9 H Lymph % (Auto) 15.8 L Gillespie % (Auto) 4.7 Eos % (Auto) 2.2 Baso % (Auto) 0.4 Neut # 7.8 H Lymph # 1.6 Gillespie # 0.5 Eos # 0.2 Baso # 0.0 Sodium 139 Potassium 4.6 Chloride 106 Carbon Dioxide 25 Anion Gap 13 BUN 34 H Creatinine 1.5 H Est GFR ( Amer) 40 Est GFR (Non-Af Amer) 33 POC Glucose (mg/dL) 137 H Random Glucose 116 H Calcium 8.8 Total Bilirubin 0.4 AST 13 L ALT 9 D Alkaline Phosphatase 88 Total Protein 6.5 Albumin 3.0 L Globulin 3.5 Albumin/Globulin Ratio 0.9 L 12/14/16 12/15/16 12/15/16 21:09 07:08 11:10 WBC RBC Hgb Hct MCV MCH MCHC RDW Plt Count MPV Neut % (Auto) Lymph % (Auto) Gillespie % (Auto) Eos % (Auto) Baso % (Auto) Neut # Lymph # Gillespie # Eos # Baso # Sodium Potassium Chloride Carbon Dioxide Anion Gap BUN Creatinine Est GFR ( Amer) Est GFR (Non-Af Amer) POC Glucose (mg/dL) 171 H 195 H 72 Random Glucose Calcium Total Bilirubin AST ALT Alkaline Phosphatase Total Protein Albumin Globulin Albumin/Globulin Ratio Assessment & Plan - Assessment and Plan (Free Text) Assessment: Patient is an 81yo female with PMHx significant for CAD s/p PCI, HTN, HLD, obesity who presented to the ED with hematuria -Acute hematuria -Abdominal pain -CAD Plan: -CT scan reviewed, no significant findings -Continue Protonix 40mg PO QAMAC -Symptoms seem to have resolved at this juncture; if they persist, would consider outpatient follow up/EGD -Diet as tolerated -Appreciate urology consultation for hematuria - Date & Time Date: 12/15/16 Time: 14:20 <Erich Duncan - Last Filed: 12/15/16 14:57> Meds - Medications Medications: Current Medications Aspirin (Aspirin Chewable) 81 mg PO DAILY [facility] Last Admin: 12/15/16 10:31 Dose: 81 mg Clopidogrel Bisulfate (Plavix) 75 mg PO DAILY [facility] Last Admin: 12/15/16 10:31 Dose: 75 mg Furosemide (Lasix) 40 mg PO DAILY [facility] Last Admin: 12/15/16 10:31 Dose: 40 mg Glimepiride (Amaryl) 4 mg PO BID [facility] Last Admin: 12/15/16 10:33 Dose: 4 mg Cefepime HCl (Maxipime Iv 1 Gm Premix) 1 gm in 50 mls @ 100 mls/hr IVPB Q12H [facility] Last Admin: 12/15/16 10:56 Dose: 100 mls/hr Insulin Aspart (Novolog Mix 70/30 (70/30 Units/Ml)) 20 units SC ACD [facility] Last Admin: 12/14/16 16:30 Dose: 20 units Insulin Aspart (Novolog Mix 70/30 (70/30 Units/Ml)) 30 units SC ACB [facility] Last Admin: 12/15/16 08:02 Dose: 30 units Insulin Aspart (Novolog) 0 unit SC ACHS [facility] PRN Reason: Protocol Last Admin: 12/15/16 12:18 Dose: Not Given Isosorbide Mononitrate (Imdur) 30 mg PO DAILY [facility] Last Admin: 12/15/16 10:32 Dose: 30 mg Losartan Potassium (Cozaar) 50 mg PO DAILY [facility] Last Admin: 12/15/16 10:32 Dose: 50 mg Metformin HCl (Glucophage) 1,000 mg PO BID [facility] Last Admin: 12/15/16 10:31 Dose: 1,000 mg Metoprolol Tartrate (Lopressor) 50 mg PO BID [facility] Last Admin: 12/15/16 10:31 Dose: 50 mg Pantoprazole Sodium (Protonix Ec Tab) 40 mg PO DAILY [facility] Last Admin: 12/15/16 10:32 Dose: 40 mg Rosuvastatin Calcium (Crestor) 10 mg PO HS [facility] Last Admin: 12/14/16 21:55 Dose: 10 mg Tramadol HCl (Ultram) 50 mg PO Q6 PRN PRN Reason: Pain, moderate (4-7) Last Admin: 12/13/16 10:43 Dose: 50 mg Results - Vital Signs Recent Vital Signs: Last Vital Signs Temp 98.2 F 12/15/16 07:19 Pulse 72 12/15/16 11:50 Resp 20 12/15/16 07:19 BP 129/69 12/15/16 10:31 Pulse Ox 95 12/15/16 11:50 - Labs Result Diagrams: 12/14/16 14:04 12/14/16 14:04 Labs: Laboratory Results - last 24 hr 12/14/16 12/14/16 12/15/16 16:26 21:09 07:08 POC Glucose (mg/dL) 137 H 171 H 195 H 12/15/16 11:10 POC Glucose (mg/dL) 72 Attending/Attestation - Attestation I have personally seen and examined this patient.: Yes I have fully participated in the care of the patient.: Yes I have reviewed all pertinent clinical information: Yes Notes (Text): 12/15/16 14:55 81 year old female with h/o CAD s/p PCI, HTN, HLD, morbid obesity who originally presented to the ED with complaints of hematuria, also complaining of abdominal pain. 1. Abdominal pain Plan: -uncertain etiology -CT scan reviewed, no significant pathology identified -prior colonoscopy in 5 years ago with polyps removed -h/o cholecystectomy in the past -pain is in the upper abdomen, though patient is a poor historian -recommend protonix 40 mg PO daily -diet as tolerated -supportive measures -further evaluation of hematuria per urology or nephrology
--- NOTE | 2016-12-15 15:32 | CP.PCM.PN ---
Subjective - Date & Time of Evaluation Date of Evaluation: 12/15/16 Time of Evaluation: 09:00 - Subjective Subjective: t max less e coli urine seen by gu and gi cont rx min 14 days Objective - Vital Signs/Intake and Output Vital Signs (last 24 hours): Temp Pulse Resp BP Pulse Ox 98.2 F 72 20 129/69 95 12/15/16 07:19 12/15/16 11:50 12/15/16 07:19 12/15/16 10:31 12/15/16 11:50 Intake and Output: 12/15/16 12/15/16 06:59 18:59 Intake Total 650 300 Balance 650 300 - Medications Medications: Current Medications Aspirin (Aspirin Chewable) 81 mg PO DAILY [facility] Last Admin: 12/15/16 10:31 Dose: 81 mg Clopidogrel Bisulfate (Plavix) 75 mg PO DAILY [facility] Last Admin: 12/15/16 10:31 Dose: 75 mg Furosemide (Lasix) 40 mg PO DAILY [facility] Last Admin: 12/15/16 10:31 Dose: 40 mg Glimepiride (Amaryl) 4 mg PO BID [facility] Last Admin: 12/15/16 10:33 Dose: 4 mg Cefepime HCl (Maxipime Iv 1 Gm Premix) 1 gm in 50 mls @ 100 mls/hr IVPB Q12H [facility] Last Admin: 12/15/16 10:56 Dose: 100 mls/hr Insulin Aspart (Novolog Mix 70/30 (70/30 Units/Ml)) 20 units SC ACD [facility] Last Admin: 12/14/16 16:30 Dose: 20 units Insulin Aspart (Novolog Mix 70/30 (70/30 Units/Ml)) 30 units SC ACB [facility] Last Admin: 12/15/16 08:02 Dose: 30 units Insulin Aspart (Novolog) 0 unit SC ACHS [facility] PRN Reason: Protocol Last Admin: 12/15/16 12:18 Dose: Not Given Isosorbide Mononitrate (Imdur) 30 mg PO DAILY [facility] Last Admin: 12/15/16 10:32 Dose: 30 mg Losartan Potassium (Cozaar) 50 mg PO DAILY [facility] Last Admin: 12/15/16 10:32 Dose: 50 mg Metformin HCl (Glucophage) 1,000 mg PO BID [facility] Last Admin: 12/15/16 10:31 Dose: 1,000 mg Metoprolol Tartrate (Lopressor) 50 mg PO BID [facility] Last Admin: 12/15/16 10:31 Dose: 50 mg Pantoprazole Sodium (Protonix Ec Tab) 40 mg PO DAILY [facility] Last Admin: 12/15/16 10:32 Dose: 40 mg Rosuvastatin Calcium (Crestor) 10 mg PO HS [facility] Last Admin: 12/14/16 21:55 Dose: 10 mg Tramadol HCl (Ultram) 50 mg PO Q6 PRN PRN Reason: Pain, moderate (4-7) Last Admin: 12/13/16 10:43 Dose: 50 mg - Labs Labs: 12/14/16 14:04 12/14/16 14:04 PT 11.5 SECONDS (9.7-12.2) 12/12/16 17:01 INR 1.0 12/12/16 17:01 APTT 22 SECONDS (21-34) 12/12/16 17:01 - Constitutional Appears: Non-toxic, Chronically Ill - Head Exam Head Exam: NORMOCEPHALIC - Eye Exam Eye Exam: PERRL. absent: Scleral icterus - ENT Exam ENT Exam: Mucous Membranes Dry, Normal External Ear Exam - Neck Exam Neck Exam: absent: Lymphadenopathy - Respiratory Exam Respiratory Exam: Decreased Breath Sounds, Clear to Ausculation Bilateral - Cardiovascular Exam Cardiovascular Exam: REGULAR RHYTHM - GI/Abdominal Exam GI & Abdominal Exam: Distended, Soft Assessment and Plan (1) Hematuria Status: Acute (2) Renal cyst, left Status: Acute (3) UTI (urinary tract infection) Status: Acute
[2016-12-15 16:09] VITALS: BP 156/71; PULSE 79; RESP 21; TEMP 97; O2SAT 96
--- NOTE | 2016-12-15 16:46 | CP.PCM.PN ---
Subjective - Date & Time of Evaluation Date of Evaluation: 12/15/16 Time of Evaluation: 08:00 - Subjective Subjective: clinically same Objective - Vital Signs/Intake and Output Vital Signs (last 24 hours): Temp Pulse Resp BP Pulse Ox 97 F L 79 21 156/71 H 96 12/15/16 15:00 12/15/16 15:00 12/15/16 15:00 12/15/16 15:00 12/15/16 15:00 Intake and Output: 12/15/16 12/15/16 06:59 18:59 Intake Total 650 300 Balance 650 300 - Medications Medications: Current Medications Aspirin (Aspirin Chewable) 81 mg PO DAILY [facility] Last Admin: 12/15/16 10:31 Dose: 81 mg Clopidogrel Bisulfate (Plavix) 75 mg PO DAILY [facility] Last Admin: 12/15/16 10:31 Dose: 75 mg Furosemide (Lasix) 40 mg PO DAILY [facility] Last Admin: 12/15/16 10:31 Dose: 40 mg Glimepiride (Amaryl) 4 mg PO BID [facility] Last Admin: 12/15/16 10:33 Dose: 4 mg Cefepime HCl (Maxipime Iv 1 Gm Premix) 1 gm in 50 mls @ 100 mls/hr IVPB Q12H [facility] Last Admin: 12/15/16 10:56 Dose: 100 mls/hr Insulin Aspart (Novolog Mix 70/30 (70/30 Units/Ml)) 20 units SC ACD [facility] Last Admin: 12/14/16 16:30 Dose: 20 units Insulin Aspart (Novolog Mix 70/30 (70/30 Units/Ml)) 30 units SC ACB [facility] Last Admin: 12/15/16 08:02 Dose: 30 units Insulin Aspart (Novolog) 0 unit SC ACHS [facility] PRN Reason: Protocol Last Admin: 12/15/16 12:18 Dose: Not Given Isosorbide Mononitrate (Imdur) 30 mg PO DAILY [facility] Last Admin: 12/15/16 10:32 Dose: 30 mg Losartan Potassium (Cozaar) 50 mg PO DAILY [facility] Last Admin: 12/15/16 10:32 Dose: 50 mg Metformin HCl (Glucophage) 1,000 mg PO BID [facility] Last Admin: 12/15/16 10:31 Dose: 1,000 mg Metoprolol Tartrate (Lopressor) 50 mg PO BID [facility] Last Admin: 12/15/16 10:31 Dose: 50 mg Pantoprazole Sodium (Protonix Ec Tab) 40 mg PO DAILY [facility] Last Admin: 12/15/16 10:32 Dose: 40 mg Rosuvastatin Calcium (Crestor) 10 mg PO HS [facility] Last Admin: 12/14/16 21:55 Dose: 10 mg Tramadol HCl (Ultram) 50 mg PO Q6 PRN PRN Reason: Pain, moderate (4-7) Last Admin: 12/13/16 10:43 Dose: 50 mg - Labs Labs: 12/14/16 14:04 12/14/16 14:04 PT 11.5 SECONDS (9.7-12.2) 12/12/16 17:01 INR 1.0 12/12/16 17:01 APTT 22 SECONDS (21-34) 12/12/16 17:01
--- NOTE | 2016-12-15 16:54 | CP.PCM.PN ---
Subjective - Date & Time of Evaluation Date of Evaluation: 12/15/16 Time of Evaluation: 11:00 - Subjective Subjective: Alert, oriented, denies sob , has some afdominal discomfort, NAD. Objective - Vital Signs/Intake and Output Vital Signs (last 24 hours): Temp Pulse Resp BP Pulse Ox 97 F L 79 21 156/71 H 96 12/15/16 15:00 12/15/16 15:00 12/15/16 15:00 12/15/16 15:00 12/15/16 15:00 Intake and Output: 12/15/16 12/15/16 06:59 18:59 Intake Total 650 300 Balance 650 300 - Medications Medications: Current Medications Aspirin (Aspirin Chewable) 81 mg PO DAILY [facility] Last Admin: 12/15/16 10:31 Dose: 81 mg Clopidogrel Bisulfate (Plavix) 75 mg PO DAILY [facility] Last Admin: 12/15/16 10:31 Dose: 75 mg Furosemide (Lasix) 40 mg PO DAILY [facility] Last Admin: 12/15/16 10:31 Dose: 40 mg Glimepiride (Amaryl) 4 mg PO BID [facility] Last Admin: 12/15/16 10:33 Dose: 4 mg Cefepime HCl (Maxipime Iv 1 Gm Premix) 1 gm in 50 mls @ 100 mls/hr IVPB Q12H [facility] Last Admin: 12/15/16 10:56 Dose: 100 mls/hr Insulin Aspart (Novolog Mix 70/30 (70/30 Units/Ml)) 20 units SC ACD [facility] Last Admin: 12/14/16 16:30 Dose: 20 units Insulin Aspart (Novolog Mix 70/30 (70/30 Units/Ml)) 30 units SC ACB [facility] Last Admin: 12/15/16 08:02 Dose: 30 units Insulin Aspart (Novolog) 0 unit SC ACHS [facility] PRN Reason: Protocol Last Admin: 12/15/16 12:18 Dose: Not Given Isosorbide Mononitrate (Imdur) 30 mg PO DAILY [facility] Last Admin: 12/15/16 10:32 Dose: 30 mg Losartan Potassium (Cozaar) 50 mg PO DAILY [facility] Last Admin: 12/15/16 10:32 Dose: 50 mg Metformin HCl (Glucophage) 1,000 mg PO BID [facility] Last Admin: 12/15/16 10:31 Dose: 1,000 mg Metoprolol Tartrate (Lopressor) 50 mg PO BID [facility] Last Admin: 12/15/16 10:31 Dose: 50 mg Pantoprazole Sodium (Protonix Ec Tab) 40 mg PO DAILY [facility] Last Admin: 12/15/16 10:32 Dose: 40 mg Rosuvastatin Calcium (Crestor) 10 mg PO HS [facility] Last Admin: 12/14/16 21:55 Dose: 10 mg Tramadol HCl (Ultram) 50 mg PO Q6 PRN PRN Reason: Pain, moderate (4-7) Last Admin: 12/13/16 10:43 Dose: 50 mg - Labs Labs: 12/14/16 14:04 12/14/16 14:04 PT 11.5 SECONDS (9.7-12.2) 12/12/16 17:01 INR 1.0 12/12/16 17:01 APTT 22 SECONDS (21-34) 12/12/16 17:01 Assessment and Plan - Assessment and Plan (Free Text) Assessment: Patient is seen and examined. Alert and oriented x3, complaints of abdominal discomfort and gasy feelings. GI consult done, cleared for discharge by GI . D/ W DR Pb Ferris and DR Torres, plan to discharge home on po antibiotics, cipro for 10 more days to complete 14 days. Advised to follow up in the office in 1 week.
--- NOTE | 2016-12-15 17:37 | CP.PCM.PN ---
Subjective - Date & Time of Evaluation Date of Evaluation: 12/15/16 Time of Evaluation: 17:37 Objective - Vital Signs/Intake and Output Vital Signs (last 24 hours): Temp Pulse Resp BP Pulse Ox 97 F L 79 21 156/71 H 96 12/15/16 15:00 12/15/16 15:00 12/15/16 15:00 12/15/16 15:00 12/15/16 15:00 Intake and Output: 12/15/16 12/15/16 06:59 18:59 Intake Total 650 300 Balance 650 300 - Medications Medications: Current Medications Aspirin (Aspirin Chewable) 81 mg PO DAILY [facility] Last Admin: 12/15/16 10:31 Dose: 81 mg Clopidogrel Bisulfate (Plavix) 75 mg PO DAILY [facility] Last Admin: 12/15/16 10:31 Dose: 75 mg Furosemide (Lasix) 40 mg PO DAILY [facility] Last Admin: 12/15/16 10:31 Dose: 40 mg Glimepiride (Amaryl) 4 mg PO BID [facility] Last Admin: 12/15/16 10:33 Dose: 4 mg Cefepime HCl (Maxipime Iv 1 Gm Premix) 1 gm in 50 mls @ 100 mls/hr IVPB Q12H [facility] Last Admin: 12/15/16 10:56 Dose: 100 mls/hr Insulin Aspart (Novolog Mix 70/30 (70/30 Units/Ml)) 20 units SC ACD [facility] Last Admin: 12/14/16 16:30 Dose: 20 units Insulin Aspart (Novolog Mix 70/30 (70/30 Units/Ml)) 30 units SC ACB [facility] Last Admin: 12/15/16 08:02 Dose: 30 units Insulin Aspart (Novolog) 0 unit SC ACHS [facility] PRN Reason: Protocol Last Admin: 12/15/16 12:18 Dose: Not Given Isosorbide Mononitrate (Imdur) 30 mg PO DAILY [facility] Last Admin: 12/15/16 10:32 Dose: 30 mg Losartan Potassium (Cozaar) 50 mg PO DAILY [facility] Last Admin: 12/15/16 10:32 Dose: 50 mg Metformin HCl (Glucophage) 1,000 mg PO BID [facility] Last Admin: 12/15/16 10:31 Dose: 1,000 mg Metoprolol Tartrate (Lopressor) 50 mg PO BID [facility] Last Admin: 12/15/16 10:31 Dose: 50 mg Pantoprazole Sodium (Protonix Ec Tab) 40 mg PO DAILY [facility] Last Admin: 12/15/16 10:32 Dose: 40 mg Rosuvastatin Calcium (Crestor) 10 mg PO HS [facility] Last Admin: 12/14/16 21:55 Dose: 10 mg Tramadol HCl (Ultram) 50 mg PO Q6 PRN PRN Reason: Pain, moderate (4-7) Last Admin: 12/13/16 10:43 Dose: 50 mg - Labs Labs: 12/14/16 14:04 12/14/16 14:04 PT 11.5 SECONDS (9.7-12.2) 12/12/16 17:01 INR 1.0 12/12/16 17:01 APTT 22 SECONDS (21-34) 12/12/16 17:01
--- NOTE | 2016-12-16 01:54 | CON ---
DATE: 12/15/2016 Urology consultation is requested by Dr. Eleno Ferris. Urology consultation filled by Dr. Cathleen Mitchell. REASON FOR CONSULTATION: Urinary tract infection. Hematuria. HISTORY OF PRESENT ILLNESS: The patient is an 81-year-old female with urinary tract infection. The patient is in otherwise fair to poor health. The patient presents with abdominal pain. She was found to have urinary tract infection. The patien t also has had hematuria on admission. The patient is noted to red urine. The patient also reports back pain. The patient has a significant past medical history. She has history of coronary artery disease. The patient has undergone previous angioplasty and stent insertion. The patient has history of hypertension and obesity. PAST SURGICAL HISTORY: Includes cholecystectomy. The patient presented with hematuria. She also was noted to have fever. The patient voids with good urinary stream. She wears a diaper. The patient also reports back pain and abdominal pain. No nausea or vomiting. PHYSICAL EXAMINATION: GENERAL: The patient is well-developed, well-nourished elderly female. The patient is obese. ABDOMEN: Soft. Protuberant and mildly distended. BACK: No CVA tenderness. LABORATORY DATA: White blood count 13,400, hematocrit 32, platelet count 286,000. BUN 38, creatinine 1.2, glucose 289. Repeat white blood count is 10,100. Repeat serum creatinine is 1.5. I reviewed the patient's CT scan. There is no stone. There is no obstruction of the kidneys. The p atient has a left upper pole, large renal cyst with calcification. This is approximately 7 cm in diameter. Urine culture revealed Escherichia coli. Blood cultures are negative. HOSPITAL COURSE: The patient had infectious disease consultation provided. The patient has been pre scribed cefepime. IMPRESSION: An 81-year-old female with hematuria. Urinary tract infection. Hyperglycemia is noted. RECOMMENDATIONS AND PLAN: Continue antibiotic therapy. Consider further urologic evaluation includi ng cystoscopy. Further therapy to follow according to patient's clinical course. Cathleen Mitchell MD cc: [phone] TT: 12/16/2016 01:53:40 Confirmation # [id number] Dictation # [id number]
== END 2016-12-15 18:15 | disposition home or self-care (01) | DRG 690 ==
LOC: C.ER 16:27 → C.9E 19:25 → C.3T 20:31
PROVIDERS: ADMIT Internal Medicine Nephrology; ATTEND Internal Medicine Nephrology
DX: N39.0 Urinary tract infection, site not specified (principal); R31.9 Hematuria, unspecified; Z68.41 Body mass index [BMI] 40.0-44.9, adult; E66.01 Morbid (severe) obesity due to excess calories; I10 Essential (primary) hypertension; E78.5 Hyperlipidemia, unspecified; I25.10 Atherosclerotic heart disease of native coronary artery without angina pectoris; J45.909 Unspecified asthma, uncomplicated; E78.00 Pure hypercholesterolemia, unspecified; N28.1 Cyst of kidney, acquired; Z86.010 Personal history of colon polyps; Z95.5 Presence of coronary angioplasty implant and graft; Z79.4 Long term (current) use of insulin

== ENCOUNTER 2017-03-21 13:29 | Emergency (ER) | payer MEDICARE, MEDICAID ==
[2017-03-21 13:29] VITALS: BMI 37.8
[2017-03-21 15:39] LABS: BASO % 0.4 % (0.0-2.0); EOS # 0.2 K/uL (0.0-0.7); EOS % 2.5 % (0.0-4.0); HEMATOCRIT 29.4 % (34.0-47.0); LYMPH # 1.5 K/uL (1.0-4.3); MEAN CORPUSCULAR HEMOGLOBIN 24.3 pg (27.0-31.0); MEAN CORPUSCULAR HGB CONC 30.8 g/dL (33.0-37.0); MEAN PLATELET VOLUME 8.2 fL (7.2-11.7); MONO # 0.4 K/uL (0.0-0.8); MONO % 3.9 % (0.0-10.0); RED CELL DISTRIBUTION WIDTH 16.9 % (11.5-14.5); WHITE BLOOD COUNT 9.7 K/uL (4.8-10.8)
[2017-03-21 15:46] LABS: CHLORIDE 111 mmol/L (98-107)
[2017-03-21 15:47] LABS: POTASSIUM 5.7 mmol/L (3.6-5.2); SODIUM 143 mmol/L (132-148)
[2017-03-21 15:48] LABS: RBC URINE 1 /hpf (0-3); URINE BACTERIA RARE (<OCC); URINE BILIRUBIN NEGATIVE (NEGATIVE); URINE BLOOD NEGATIVE (NEGATIVE); URINE COLOR Straw (YELLOW); URINE GLUCOSE (UA) 1+ mg/dL (Normal); URINE HYALINE CAST 0-2 /lpf (0-2); URINE KETONE NEGATIVE (NEGATIVE); URINE LEUKOCYTE ESTERASE 2+ Leu/uL (Negative); URINE PROTEIN NEGATIVE (NEGATIVE); URINE UROBILINOGEN NORMAL mg/dL (0.2-1.0); WBC URINE 28 /hpf (0-5)
[2017-03-21 15:49] LABS: ALKALINE PHOSPHATASE 88 U/L (38-126); AST/SGOT 13 U/L (14-36); BILIRUBIN,TOTAL 0.3 mg/dL (0.2-1.3); BLOOD UREA NITROGEN 34 mg/dL (7-17); CARBON DIOXIDE 21 mmol/L (22-30); GFR AFRICAN-AMERICAN 40; TOTAL PROTEIN 6.8 g/dL (6.3-8.3)
[2017-03-21 15:50] LABS: ALT/SGPT 19 U/L (9-52); CALCIUM 9.1 mg/dl (8.6-10.4); GLUCOSE,RANDOM 191 mg/dL (65-105)
--- NOTE | 2017-03-21 16:31 | RAD ---
PROCEDURE: Right Knee Radiographs. HISTORY: Pain s/p fall COMPARISON: None. FINDINGS: BONES: Normal. No fracture. JOINTS: Medial osteoarthritis. Mild patellofemoral osteoarthritis. Lateral compartment preserved. No articular erosion. JOINT EFFUSION: None. OTHER FINDINGS: None. IMPRESSION: No acute fracture. Medial and patellofemoral osteoarthritis.
--- NOTE | 2017-03-21 16:32 | RAD ---
PROCEDURE: Right Foot Radiographs. HISTORY: pain s/p fall COMPARISON: None. FINDINGS: BONES: Normal. No fracture. JOINTS: Normal. SOFT TISSUES: Normal. OTHER FINDINGS: None. IMPRESSION: Normal right foot radiographs.
--- NOTE | 2017-03-21 16:47 | CT ---
CT chest, abdomen, and pelvis without IV contrast Indication: Bilateral chest/upper abdominal pain status post fall Technique: Contiguous axial images of the chest, abdomen, and pelvis without oral or IV contrast. Coronal and Sagittal reformats generated and reviewed. This CT exam was performed using 1 or more of the falling dose reduction techniques: Automated exposure control, adjustment of the MAA and/or kV according to patient size, and/or use of iterative reconstruction technique. Radiation dose: Total exam DLP = 1447.48 MGy-cm. Comparison: CT abdomen and pelvis without IV contrast performed 12/12/16 Findings: Visualized portions of the inferior thyroid gland appear unremarkable. The mediastinal and hilar vascular structures appear within normal limits. The heart appears within normal limits of size. Sub cm mediastinal/prevascular lymph nodes, nonspecific. Dense coronary artery calcifications. Small bilateral pleural effusions, right greater than left. Bibasilar atelectasis. No pneumothorax. No suspicious pulmonary nodules measuring greater than 5 mm. Cholecystectomy. Fatty atrophy of the pancreas. Mild bilateral renal atrophy. Nonspecific perinephric fat stranding. No obstructing calculus or hydronephrosis. Indeterminate 7.0 x 6.6 cm low-density left upper pole renal lesion with peripheral calcification; this is not clearly cystic. Additional indeterminate 1.5 cm left midpole renal hypodensity. The noncontrast liver, spleen, and adrenal glands appear unremarkable. The stomach is nondistended. Lack of oral contrast limits evaluation for bowel pathology. The bowel loops appear within normal limits of caliber without evidence of intestinal obstruction. The appendix appears within normal limits of caliber. No secondary signs of acute appendicitis. There is no definite free air. Atherosclerotic calcifications of the aorta and branches. Uterus is present. The urinary bladder appears unremarkable. Fat containing umbilical hernia. Degenerative changes of the spine. Osseous demineralization. Right 6th and 7th rib fracture deformities. Impression: Right 6th and 7th rib fracture deformities. Exit abdomen and Small bilateral pleural effusions, right greater than left. Bibasilar atelectasis. Indeterminate 7.0 x 6.6 cm low-density left upper pole renal lesion with peripheral calcification; this is not clearly cystic. Additional indeterminate 1.5 cm left midpole renal hypodensity. Cholecystectomy. Additional findings as above.
[2017-03-21 17:07] VITALS: TEMP 97.5
[2017-03-21] MEDS ORDERED: Sod Polystyrene Sulf 15 gm/60 ml Oral Susp PO ONE (17:30)
[2017-03-21] MEDS ORDERED: Sod Polystyrene Sulf 15 gm/60 ml Oral Susp ONE (17:36)
--- NOTE | 2017-03-21 18:12 | C.PDOC ---
History Of Present Illness Pt had a mechanical fall 6 day ago. C/o b/l lower ribs pain. - HPI Time Seen by Provider: 03/21/17 14:37 Chief Complaint (Nursing): Trauma History Per: Patient, Family (daughter) Injury Occurred (Timing): Days Ago: (6) Location Of Injury: Right: Chest, Foot, Knee, Left: Chest Severity: Moderate Additional History Per: Prior Records - Fall Fall:Prior To Injury: Tripped Past Medical History Reviewed: Historical Data, Nursing Documentation, Vital Signs Vital Signs: Last Vital Signs Temp 97.5 F L 03/21/17 17:06 Pulse 64 03/21/17 17:06 Resp 22 03/21/17 14:45 BP 141/91 H 03/21/17 17:06 Pulse Ox 99 03/21/17 17:06 - Medical History PMH: Arthritis (BACK; HIP AND KNEES), Asthma, CAD, CHF, Diabetes, HTN, Hypercholesterolemia, Chronic Kidney Disease (Renal cyst) Surgical History: Cholecystectomy, Coronary Stent - [facility] Procedures CORONAR ARTERIOGR-2 CATH (08/18/13) ENDO EXCISION/DEST OF LESION OR TISSUE OF STOMACH (04/19/05) ENDO RECTUM POLYPECTOMY (04/01/05) ENDOSC POLYPECTOMY OF LG INTEST (04/01/05) INJECT/INFUSE NEC (08/10/13) INJECT/INFUSE PLATELET INHIBITOR (08/18/13) INSERTION OF ONE VASCULAR STENT (07/30/13) INSERTION OF TWO VASCULAR STENTS (08/18/13) INSRT OF DRUG-ELUTING CORON ARTERY STENTS(S) (08/18/13) LEFT HEART CARDIAC CATH (08/18/13) LT HEART ANGIOCARDIOGRAM (08/18/13) NON-INVASIVE MECHANICAL VENTILATION (08/18/13) OCCUPATIONAL THERAPY (10/18/11) PACKED CELL TRANSFUSION (08/18/13) PERCUTANEOUS TRANSLUMINAL CORONARY ANGIOPLASTY [PTCA] (08/18/13) PHYSICAL THERAPY NEC (10/18/11) PROCEDURE ON SINGLE VESSEL (08/18/13) VACCINATION NEC (08/18/13) Family History: States: Unknown Family Hx - Social History Hx Tobacco Use: No Hx Alcohol Use: No Hx Substance Use: No - Immunization History Hx Tetanus Toxoid Vaccination: No Hx Influenza Vaccination: Yes Hx Pneumococcal Vaccination: (unk) Review Of Systems Except As Marked, All Systems Reviewed And Found Negative. Constitutional: Negative for: Fever Respiratory: Positive for: Shortness of Breath (chronic). Negative for: Hemoptysis Gastrointestinal: Negative for: Vomiting Genitourinary: Negative for: Dysuria, Hematuria Musculoskeletal: Positive for: Back Pain (chronic). Negative for: Neck Pain Skin: Negative for: Rash Neurological: Negative for: Weakness, Numbness, Seizures, Altered Mental Status , Headache Physical Exam - Physical Exam Appears: Non-toxic, No Acute Distress Skin: Warm, Dry Head: Atraumatic, Normacephalic Eye(s): bilateral: PERRL, EOMI Neck: Normal ROM, No Midline Cervical Tenderness, No Step Off Deformity, Supple Chest: Symmetrical, No Deformity, Tenderness (b/l lower chest wall) Gastrointestinal/Abdominal: Tenderness (upper abdomen?), Distention (Obese) Back: No CVA Tenderness Extremity: Normal ROM, Other (ecchemosis on right knee and right foot) Extremity: Bilateral: Hips Non-Tender, Pelvis-Stable Pulses: Left Dorsalis Pedis: Normal, Right Dorsalis Pedis: Normal Neurological/Psych: Oriented x3, Normal Motor, Normal Sensation ED Course And Treatment - Laboratory Results Result Diagrams: 03/21/17 15:35 03/21/17 15:35 Lab Interpretation: Abnormal Interpretation Of Abnormal: Mild hyperkalemia. ECG: Interpreted By Me, Viewed By Me ECG Rhythm: Sinus Rhythm, Nonspecific Changes Interpretation Of ECG: No signs of hyperkalemia. Rate From EC O2 Sat by Pulse Oximetry: 99 Pulse Ox Interpretation: Normal - Other Rad Right knee x-rays X-Ray: Viewed By Me, Read By Radiologist Interpretation: IMPRESSION: No acute fracture. Medial and patellofemoral osteoarthritis. Right foot x-rays X-Ray: Viewed By Me, Read By Radiologist Interpretation: IMPRESSION: Normal right foot radiographs. - CT Scan/US CT chest,abd Other Rad Studies (CT/US): Read By Radiologist, Radiology Report Reviewed CT/US Interpretation: Impression: Right 6th and 7th rib fracture deformities. Exit abdomen and Small bilateral pleural effusions, right greater than left. Bibasilar atelectasis. Indeterminate 7.0 x 6.6 cm low-density left upper pole renal lesion with peripheral calcification; this is not clearly cystic. Additional indeterminate 1.5 cm left midpole renal hypodensity. Cholecystectomy. Additional findings as above. Reassessment Condition: Improved Medical Decision Making Medical Decision Making: Pt is taking a potassium supplement at home. I instructed the pt and her daughter to stop it. They have an appointment with Dr. Espinal tomorrow. I offered the patient admission to the hospital, but she declined. She wants to go home now. Disposition Counseled Patient/Family Regarding: Studies Performed, Diagnosis, Need For Followup, Rx Given - Disposition Referrals: Shan Espinal MD [Staff Provider] - Disposition: HOME/ ROUTINE Disposition Time: 18:18 Condition: IMPROVED Additional Instructions: Stop taking your Potassium supplement. Follow up with your doctor tomorrow as scheduled. Return to the ER if you develop worsening of symptoms or if you have any other concerns. Prescriptions: Sodium Polystyrene Sulfonate [kayeXALATE Oral Susp] 15 gm PO DAILY #5 bottle traMADol/Acetaminophen [Ultracet 325 MG-37.5 MG] 1 tab PO Q4 PRN #30 tab PRN Reason: Pain Instructions: Rib Fracture (ED), Hyperkalemia (ED) - Clinical Impression Clinical Impression: Right rib fracture, Pleural effusion, right, Hyperkalemia
[2017-03-21 18:35] VITALS: BP 98/66; PULSE 57; RESP 18; O2SAT 97
== END 2017-03-21 18:35 | disposition home or self-care (01) ==
LOC: C.ER 13:29
DX: S22.41XA Multiple fractures of ribs, right side, initial encounter for closed fracture (principal); W01.0XXA Fall on same level from slipping, tripping and stumbling without subsequent striking against object, initial encounter; J90 Pleural effusion, not elsewhere classified; E87.5 Hyperkalemia

== ENCOUNTER 2018-06-25 15:03 | Observation (INO) | payer MEDICARE, MEDICAID ==
[2018-06-25 15:15] VITALS: BMI 29.9
--- NOTE | 2018-06-25 16:09 | C.PDOC ---
History Of Present Illness 82 y/o F c PMHx CAD s/p stent on Plavix, HTN, DM, COPD p/w R shoulder/arm pain x 3 days and L foot 1st digit erythema x 2 days. Patient fell 3 days and and 2 days ago. The first fall, she was sleeping in bed and fell out of bed. The second fall, she was walking from bathroom, had a moment of dizziness which she describes as spinning but questionable lightheadedness and fell. She denies any of this dizziness now. She denies chest pain or dyspnea different from her baseline. She states that since the fall, she has pain in the R shoulder which radiates down to the R hand. Patient also notes that service shop foreman came to cut her nails and since then, she has noticed increasing erythema of the 1st digit of the L foot. Denies fever or discharge. Time Seen by Provider: 06/25/18 15:32 Chief Complaint (Nursing): Upper Extremity Problem/Injury Past Medical History Vital Signs: Last Vital Signs Temp 97.6 F 06/25/18 15:10 Pulse 66 06/25/18 15:10 Resp 18 06/25/18 15:10 BP 125/61 06/25/18 15:10 Pulse Ox 95 06/25/18 15:10 - Medical History PMH: Arthritis (BACK; HIP AND KNEES), Asthma, CAD, CHF, Diabetes, HTN, Hypercholesterolemia, Chronic Kidney Disease (Renal cyst) Denies: Depression Surgical History: Cholecystectomy, Coronary Stent Denies: Pacemaker - [facility] Procedures CORONAR ARTERIOGR-2 CATH (08/18/13) ENDO EXCISION/DEST OF LESION OR TISSUE OF STOMACH (04/19/05) ENDO RECTUM POLYPECTOMY (04/01/05) ENDOSC POLYPECTOMY OF LG INTEST (04/01/05) INJECT/INFUSE NEC (08/10/13) INJECT/INFUSE PLATELET INHIBITOR (08/18/13) INSERTION OF ONE VASCULAR STENT (07/30/13) INSERTION OF TWO VASCULAR STENTS (08/18/13) INSRT OF DRUG-ELUTING CORON ARTERY STENTS(S) (08/18/13) LEFT HEART CARDIAC CATH (08/18/13) LT HEART ANGIOCARDIOGRAM (08/18/13) NON-INVASIVE MECHANICAL VENTILATION (08/18/13) OCCUPATIONAL THERAPY (10/18/11) PACKED CELL TRANSFUSION (08/18/13) PERCUTANEOUS TRANSLUMINAL CORONARY ANGIOPLASTY [PTCA] (08/18/13) PHYSICAL THERAPY NEC (10/18/11) PROCEDURE ON SINGLE VESSEL (08/18/13) VACCINATION NEC (08/18/13) Family History: States: Unknown Family Hx - Social History Hx Tobacco Use: No Hx Alcohol Use: No Hx Substance Use: No - Immunization History Hx Tetanus Toxoid Vaccination: No Hx Influenza Vaccination: Yes Hx Pneumococcal Vaccination: (unk) Review Of Systems Except As Marked, All Systems Reviewed And Found Negative. Constitutional: Negative for: Fever Cardiovascular: Negative for: Chest Pain Physical Exam - Physical Exam Additional Physical Exam Comments: Gen: NAD Head: NC. L maxillary ecchymosis. Eyes: PERRL. EOMI. No hyphema. ENT: MMM Neck: Supple. No midline tenderness. FROM. Chest: No tenderness CV: Regular rate. Radial pulses 2+ bilaterally. Lungs: CTA b/l Abd: Soft, obese. Back: No midline tenderness Extremities: No swelling. No focal bony tenderness of R arm. FROM x 4. Skin: L foot 1st digit with erythema without fluctuant edema. No discharge. Neuro: Alert, no focal deficit ED Course And Treatment - Laboratory Results Result Diagrams: 06/25/18 16:21 06/25/18 16:21 O2 Sat by Pulse Oximetry: 95 Medical Decision Making Medical Decision Making: CT HEAD IMPRESSION: No acute intracranial abnormality. FACIAL CT IMPRESSION: No acute nasal bone, orbital or maxillofacial fracture. Chronic ethmoid sinusitis. Mild mucosal thickening in the maxillary sinuses. CXR IMPRESSION: No active pulmonary disease. No acute findings. Moderate pulmonary venous congestion. Shoulder IMPRESSION: No acute fracture or dislocation. Forearm IMPRESSION: No acute displaced fracture or dislocation. Humerus IMPRESSION: No acute displaced fracture or dislocation. EKG Sinus rhythm, 65 bpm, no ST elevations. Dr. Ferris accepts patient to hospitalist service. Disposition - Disposition Disposition: HOSPITALIZED Disposition Time: 18:00 Condition: FAIR Forms: [email or web address] (Danish) - Clinical Impression Clinical Impression: Fall, Elevated troponin, Cellulitis, toe
[2018-06-25 16:24] LABS: BASO # 0.1 K/uL (0.0-0.2); BASO % 0.9 % (0.0-2.0); EOS # 0.2 K/uL (0.0-0.7); EOS % 2.2 % (0.0-4.0); HEMOGLOBIN 9.6 g/dL (11.0-16.0); LYMPH # 0.8 K/uL (1.0-4.3); MEAN CELL VOLUME 77.6 fL (81.0-99.0); MEAN CORPUSCULAR HEMOGLOBIN 23.6 pg (27.0-31.0); MEAN CORPUSCULAR HGB CONC 30.3 g/dL (33.0-37.0); MONO # 0.4 K/uL (0.0-0.8); MONO % 4.9 % (0.0-10.0); NEUT # 6.8 K/uL (1.8-7.0); RBC 4.07 Mil/uL (3.80-5.20); RED CELL DISTRIBUTION WIDTH 23.1 % (11.5-14.5); WHITE BLOOD COUNT 8.3 K/uL (4.8-10.8)
[2018-06-25 16:34] LABS: INR 1.1; PROTHROMBIN TIME 11.8 SECONDS (9.7-12.2)
[2018-06-25 16:37] LABS: ALB/GLOB RATIO 1.1 (1.0-2.1); ALBUMIN 3.6 g/dL (3.5-5.0); CALCIUM 8.8 mg/dl (8.6-10.4)
[2018-06-25 17:03] LABS: CK-MB 1.2 ng/mL (0.0-3.38); TROPONIN I 0.137 ng/mL (0.00-0.120)
--- NOTE | 2018-06-25 17:06 | CT ---
Date of service: 06/25/2018 PROCEDURE: CT HEAD WITHOUT CONTRAST. HISTORY: fall, on plavix COMPARISON: None available. TECHNIQUE: Axial computed tomography images were obtained through the head/brain without intravenous contrast. Radiation dose: Total exam DLP = 1030.65 mGy-cm. This CT exam was performed using one or more of the following dose reduction techniques: Automated exposure control, adjustment of the mA and/or kV according to patient size, and/or use of iterative reconstruction technique. FINDINGS: HEMORRHAGE: No intracranial hemorrhage. BRAIN: Tanner-white matter differentiation is preserved. There is no mass, mass effect or abnormal extra-axial fluid collection. There is no territorial infarction. The midline sagittal structures are normal. VENTRICLES: There is mild age-related global parenchymal volume loss and proportionate enlargement of the ventricles and cortical sulci. CALVARIUM: There is no calvarial fracture or extracranial soft tissue swelling. There is focal benign appearing osseous protuberance from the left frontal outer table. PARANASAL SINUSES: There is scattered mucosal thickening in the ethmoid air cells. The remaining included paranasal sinuses are clear. MASTOID AIR CELLS: Predominantly clear. OTHER FINDINGS: None. IMPRESSION: No acute intracranial abnormality.
--- NOTE | 2018-06-25 17:14 | CT ---
Date of service: 06/25/2018 PROCEDURE: CT MAXILLOFACIAL BONES WITHOUT CONTRAST HISTORY: fall, facial injury COMPARISON: None available. TECHNIQUE: Contiguous axial CT images of the maxillofacial bones were obtained. Coronal and sagittal reformats were generated. Radiation dose: Total exam DLP = 716.76 mGy-cm. This CT exam was performed using one or more of the following dose reduction techniques: Automated exposure control, adjustment of the mA and/or kV according to patient size, and/or use of iterative reconstruction technique. FINDINGS: NASAL BONES: No acute fracture. ORBITS: No acute fracture. The globes are symmetric. No evidence for orbital hemorrhage, emphysema or acute injury. PARANASAL SINUSES/ MASTOIDS: Moderate scattered mucosal thickening in the ethmoid air cells and mild mucosal thickening in the maxillary sinuses. The remaining paranasal sinuses are clear. The mastoid air cells are clear. MAXILLA: No acute maxillofacial fracture. MANDIBLE/ TEMPOROMANDIBULAR JOINTS: Unremarkable. SKULL BASE: Unremarkable. TEMPORAL BONES: Middle ears and mastoid grossly unremarkable. OTHER FINDINGS: None. IMPRESSION: No acute nasal bone, orbital or maxillofacial fracture. Chronic ethmoid sinusitis. Mild mucosal thickening in the maxillary sinuses.
--- NOTE | 2018-06-25 17:39 | RAD ---
Date of service: 06/25/2018 HISTORY: fall COMPARISON: No prior. FINDINGS: LUNGS: The lungs are well inflated. There is moderate pulmonary venous congestion. There is linear atelectasis/scarring in the right mid and lower lobes. PLEURA: No pleural effusions or pneumothorax. CARDIOVASCULAR: The heart is normal in size. There are aortic atherosclerotic calcifications present. OSSEOUS STRUCTURES: Within normal limits for the patient's age. VISUALIZED UPPER ABDOMEN: Normal. OTHER FINDINGS: None. IMPRESSION: No active pulmonary disease. No acute findings. Moderate pulmonary venous congestion.
--- NOTE | 2018-06-25 17:40 | RAD ---
Date of service: 06/25/2018 PROCEDURE: Radiographs of the Right Shoulder HISTORY: fall, shoulder pain COMPARISON: No prior. FINDINGS: BONES: There is diffuse bone demineralization. . No acute displaced fracture or bone destruction. Bone alignment is normal. JOINTS: There is moderate degenerative osteoarthrosis in the acromioclavicular and glenohumeral joints. SOFT TISSUES: Normal. OTHER FINDINGS: None. IMPRESSION: No acute fracture or dislocation.
--- NOTE | 2018-06-25 17:42 | RAD ---
PROCEDURE: Radiographs of the right humerus. HISTORY: fall, arm pain COMPARISON: None. FINDINGS: BONES: There is diffuse bone demineralization. No acute displaced fracture or dislocation. SOFT TISSUES: Normal. OTHER FINDINGS: None. IMPRESSION: No acute displaced fracture or dislocation.
--- NOTE | 2018-06-25 17:43 | RAD ---
PROCEDURE: Radiographs of the Right Forearm HISTORY: fall, arm pain COMPARISON: None available. TECHNIQUE: Frontal and lateral views obtained. FINDINGS: BONES: There is diffuse bone demineralization. There is no acute displaced fracture or bone destruction. Bone alignment is normal. JOINT SPACES: Unremarkable. OTHER FINDINGS: None. IMPRESSION: No acute displaced fracture or dislocation.
--- NOTE | 2018-06-25 20:33 | CP.PCM.HP ---
<Sonja Huang - Last Filed: 06/26/18 01:43> History of Present Illness - History of Present Illness History of Present Illness: CC: My toe hurts and I fell HPI: Patient is an 82 year old female with pmhx of CAD s/p stent(2013) on Plavix, HTN, HLD, DM, gout, asthma/COPD who presents to ED with complaints of left great toe pain and body aches sustained 2/2 falls over the past 3 days. Pt reports she sustained 1 fall getting out of bed 3 days ago, denies LOC; and second fall sustained 2/2 vertigo/dizziness, also denying LOC. Patient reports injury to left chest/shoulder, right shoulder/back. Patient also reports left great toe pain 2/2 podiatry cutting her nails. She then developed erythema and increasing discoloration and reports toe is painful. Pt denies dizziness, fevers/chills, chest pain, SOB, nausea, constipation. pmhx: CAD, DM, HTN, asthma, gout, arthritis, HLD pshx: stent(2013), cholecystectomy, Allergies: iodine Meds: plavix, ASA, lasix, Imdur, losartan, metoprolol, lipitor, allopurinol, glimepiride, metformin SocHx: Denies FamHx: unknown Present on Admission - Present on Admission Any Indicators Present on Admission: No Review of Systems - Constitutional Constitutional: absent: Headache - Cardiovascular Cardiovascular: Leg Edema. absent: Chest Pain - Respiratory Respiratory: absent: Dyspnea, Chest Congestion - Gastrointestinal Gastrointestinal: absent: Constipation - Genitourinary Genitourinary: absent: Dysuria - Musculoskeletal Musculoskeletal: Joint Swelling, Limited Range of Motion - Neurological Neurological: Dizziness. absent: Syncope Past Patient History - Infectious Disease Hx of Infectious Diseases: None - Tetanus Immunizations Tetanus Immunization: Unknown - Past Medical History & Family History Past Medical History?: Yes - Past Social History Smoking Status: Never Smoked - CARDIAC Hx Congestive Heart Failure: Yes Hx Hypercholesterolemia: Yes Hx Hypertension: Yes Hx Pacemaker: No - PULMONARY Hx Asthma: Yes - NEUROLOGICAL Hx Neurological Disorder: No - HEENT Hx HEENT Problems: Yes Hx Cataracts: Yes (LASER SURGERY-CATARACT SX) - RENAL Hx Chronic Kidney Disease: Yes (Renal cyst) - ENDOCRINE/METABOLIC Hx Endocrine Disorders: Yes Hx Diabetes Mellitus Type 1: Yes (PER PATIENT TAKES INSULIN) - HEMATOLOGICAL/ONCOLOGICAL Hx Blood Disorders: No - INTEGUMENTARY Hx Dermatological Problems: No - MUSCULOSKELETAL/RHEUMATOLOGICAL Hx Arthritis: Yes (BACK; HIP AND KNEES) - GASTROINTESTINAL Hx Gastrointestinal Disorders: (ABDOMINAL DISTENTION) - GENITOURINARY/GYNECOLOGICAL Hx Genitourinary Disorders: No - PSYCHIATRIC Hx Depression: No Hx Substance Use: No - SURGICAL HISTORY Hx Cholecystectomy: Yes Hx Coronary Stent: Yes - ANESTHESIA Hx Anesthesia: Yes Hx Anesthesia Reactions: No Hx Malignant Hyperthermia: No Meds Allergies/Adverse Reactions: Allergies Allergy/AdvReac Type Severity Reaction Status Date / Time iodine Allergy ANAPHYLAXIS Verified 06/25/18 15:13 Physical Exam - Head Exam Head Exam: NORMAL INSPECTION (ecchymosis, well healing to left cheek) - Eye Exam Eye Exam: EOMI, Normal appearance Pupil Exam: PERRL - ENT Exam ENT Exam: Mucous Membranes Moist, Normal Exam - Respiratory Exam Respiratory Exam: NORMAL BREATHING PATTERN. absent: Wheezes, Respiratory Distress - Cardiovascular Exam Cardiovascular Exam: REGULAR RHYTHM, +S1, +S2, Systolic Murmur - GI/Abdominal Exam GI & Abdominal Exam: Soft. absent: Tenderness Additional comments: abdominal obesity - Extremities Exam Extremities exam: Positive for: pedal edema (4+ B/L), pedal pulses present (to doppler). Negative for: calf tenderness Additional comments: Left great toe: warm to touch. Erythematous, dark discoloration at distal toe left distal calf lesions, non erythematous. Left dorsal foot lesion, well he aling - Neurological Exam Neurological exam: Alert - Psychiatric Exam Psychiatric exam: Normal Affect, Normal Mood - Skin Skin Exam: Dry, Normal Color, Warm Results - Vital Signs Recent Vital Signs: Last Vital Signs Temp 98.1 F 06/25/18 20:13 Pulse 88 06/25/18 20:13 Resp 19 06/25/18 20:13 BP 137/51 L 06/25/18 20:13 Pulse Ox 100 06/25/18 20:13 - Labs Result Diagrams: 06/25/18 16:21 06/25/18 16:21 Labs: Laboratory Results - last 24 hr 06/25/18 06/25/18 06/25/18 16:21 16:21 16:21 WBC 8.3 RBC 4.07 Hgb 9.6 L Hct 31.6 L MCV 77.6 L MCH 23.6 L MCHC 30.3 L RDW 23.1 H Plt Count 256 MPV 8.0 Neut % (Auto) 82.0 H Lymph % (Auto) 10.0 L Swain % (Auto) 4.9 Eos % (Auto) 2.2 Baso % (Auto) 0.9 Neut # (Auto) 6.8 Lymph # (Auto) 0.8 L Swain # (Auto) 0.4 Eos # (Auto) 0.2 Baso # (Auto) 0.1 PT 11.8 INR 1.1 APTT 27 Sodium 140 Potassium 4.2 Chloride 101 Carbon Dioxide 33 H Anion Gap 10 BUN 35 H Creatinine 1.5 H Est GFR ( Amer) 40 Est GFR (Non-Af Amer) 33 Random Glucose 254 H D Calcium 8.8 Total Bilirubin 0.4 AST 14 ALT 16 Alkaline Phosphatase 103 Total Creatine Kinase 24 L CK-MB (Mass) 1.20 Troponin I 0.1370 H* Total Protein 6.8 Albumin 3.6 Globulin 3.2 Albumin/Globulin Ratio 1.1 Assessment & Plan - Assessment and Plan (Free Text) Assessment: 82 year old female with pmhx of CAD, HTN, HLD, DM admitted for evaluation of falls and left great toe pain; patient found to have elevated troponin in ED Plan: Falls -CT/xrays all negative for acute pathology -f/u echo -positive trop x1; now downtrending; EKGs unchanged from prior CAD -tele -ASA, plavix, crestor, Imdur -f/u lipid panel HTN -losartan, metoprolol Left great toe pain -start rocephin(06/25) -pulses audible by doppler -f/u arterial dopplers; assess for PVD -podiatry consult Dr. Avery Possible CHF -lasix -f/u pBNP -f/u echo, last EF`48%(2012) DM -f/u hgb A1C -ISS -hyoglycemia protocol Ppx -HHD -DVT ppx, heparin Discussed with Dr. Cruz -Sonja Huang, PGY-1 <Scott Cruz P - Last Filed: 06/26/18 08:09> Results - Vital Signs Recent Vital Signs: Last Vital Signs Temp 97.7 F 06/26/18 04:17 Pulse 72 06/26/18 04:17 Resp 20 06/26/18 04:17 BP 141/61 06/26/18 04:17 Pulse Ox 96 06/26/18 04:17 - Labs Result Diagrams: 06/26/18 04:14 06/26/18 04:14 Labs: Laboratory Results - last 24 hr 06/25/18 06/25/18 06/25/18 16:21 16:21 16:21 WBC 8.3 RBC 4.07 Hgb 9.6 L Hct 31.6 L MCV 77.6 L MCH 23.6 L MCHC 30.3 L RDW 23.1 H Plt Count 256 MPV 8.0 Neut % (Auto) 82.0 H Lymph % (Auto) 10.0 L Swain % (Auto) 4.9 Eos % (Auto) 2.2 Baso % (Auto) 0.9 Neut # (Auto) 6.8 Lymph # (Auto) 0.8 L Swain # (Auto) 0.4 Eos # (Auto) 0.2 Baso # (Auto) 0.1 PT 11.8 INR 1.1 APTT 27 Sodium 140 Potassium 4.2 Chloride 101 Carbon Dioxide 33 H Anion Gap 10 BUN 35 H Creatinine 1.5 H Est GFR ( Amer) 40 Est GFR (Non-Af Amer) 33 POC Glucose (mg/dL) Random Glucose 254 H D Calcium 8.8 Total Bilirubin 0.4 AST 14 ALT 16 Alkaline Phosphatase 103 Total Creatine Kinase 24 L CK-MB (Mass) 1.20 Troponin I 0.1370 H* NT-Pro-B Natriuret Pep Total Protein 6.8 Albumin 3.6 Globulin 3.2 Albumin/Globulin Ratio 1.1 Triglycerides Cholesterol LDL Cholesterol Direct HDL Cholesterol TSH 3rd Generation Urine Color Urine Clarity Urine pH Ur Specific Benkelman Urine Protein Urine Glucose (UA) Urine Ketones Urine Blood Urine Nitrate Urine Bilirubin Urine Urobilinogen Ur Leukocyte Esterase Urine WBC (Auto) Urine RBC (Auto) Ur Squamous Epith Cells Hyaline Casts 06/25/18 06/25/18 06/26/18 21:52 22:04 03:19 WBC RBC Hgb Hct MCV MCH MCHC RDW Plt Count MPV Neut % (Auto) Lymph % (Auto) Swain % (Auto) Eos % (Auto) Baso % (Auto) Neut # (Auto) Lymph # (Auto) Swain # (Auto) Eos # (Auto) Baso # (Auto) PT INR APTT Sodium Potassium Chloride Carbon Dioxide Anion Gap BUN Creatinine Est GFR ( Amer) Est GFR (Non-Af Amer) POC Glucose (mg/dL) 300 H Random Glucose Calcium Total Bilirubin AST ALT Alkaline Phosphatase Total Creatine Kinase CK-MB (Mass) Troponin I 0.1160 NT-Pro-B Natriuret Pep 3120 H Total Protein Albumin Globulin Albumin/Globulin Ratio Triglycerides Cholesterol LDL Cholesterol Direct HDL Cholesterol TSH 3rd Generation Urine Color Yellow Urine Clarity Clear Urine pH 5.0 Ur Specific Benkelman 1.011 Urine Protein Negative Urine Glucose (UA) Normal Urine Ketones Negative Urine Blood Negative Urine Nitrate Negative Urine Bilirubin Negative Urine Urobilinogen Normal Ur Leukocyte Esterase 1+ H Urine WBC (Auto) 23 H Urine RBC (Auto) 2 Ur Squamous Epith Cells 4 Hyaline Casts 6-10 H 06/26/18 06/26/18 06/26/18 04:14 04:14 06:09 WBC 7.3 RBC 3.70 L Hgb 8.8 L Hct 29.7 L MCV 80.4 L D MCH 23.7 L MCHC 29.5 L RDW 22.9 H Plt Count 250 MPV 8.1 Neut % (Auto) 78.7 H Lymph % (Auto) 10.7 L Swain % (Auto) 5.9 Eos % (Auto) 3.7 Baso % (Auto) 1.0 Neut # (Auto) 5.7 Lymph # (Auto) 0.8 L Swain # (Auto) 0.4 Eos # (Auto) 0.3 Baso # (Auto) 0.1 PT INR APTT Sodium 141 Potassium 4.3 Chloride 101 Carbon Dioxide 35 H Anion Gap 10 BUN 36 H Creatinine 1.7 H Est GFR ( Amer) 35 Est GFR (Non-Af Amer) 29 POC Glucose (mg/dL) 187 H Random Glucose 219 H Calcium 8.4 L Total Bilirubin 0.3 AST 11 L D ALT 20 Alkaline Phosphatase 91 Total Creatine Kinase CK-MB (Mass) Troponin I 0.0720 NT-Pro-B Natriuret Pep Total Protein 6.3 Albumin 3.2 L Globulin 3.2 Albumin/Globulin Ratio 1.0 Triglycerides 104 Cholesterol 118 LDL Cholesterol Direct 65 HDL Cholesterol 31 TSH 3rd Generation 3.06 Urine Color Urine Clarity Urine pH Ur Specific Benkelman Urine Protein Urine Glucose (UA) Urine Ketones Urine Blood Urine Nitrate Urine Bilirubin Urine Urobilinogen Ur Leukocyte Esterase Urine WBC (Auto) Urine RBC (Auto) Ur Squamous Epith Cells Hyaline Casts Attending/Attestation - Attestation I have personally seen and examined this patient.: Yes I have fully participated in the care of the patient.: Yes I have reviewed all pertinent clinical information: Yes Notes (Text): 06/26/18 07:59 Right great toe suspect infection post nail clipping PVD doppler + but difficult palpation Obese Recent fall, ambulatory dysfunction, obese, deconditioning Elevated troponin without acute CP, sob history but has h/o CAD prior stents, suspect recent event few days ago, as CPK/mb normal and trop trending down, patient on asa/plavix Suspect CO2 retention from body habitus, suspect sleep apnea, may benefit with out patient sleep studies. Plan Rocephin as abx Podiatry consult PT/OT ABG Echo Arterial doppler DVT/GI prophylaxis Home meds See orders for detail.
[2018-06-25] MEDS ORDERED: Glucagon Recombinant 1 mg Inj IM PRN (20:59)
[2018-06-25] MEDS ORDERED: Dextrose 50% SYRINGE Inj (50 ml) IV PRN (20:59)
[2018-06-25] MEDS ORDERED: Sodium Chloride 0.9% 1,000 ML IV SCH (21:00)
[2018-06-25] MEDS: (Novolin R) Insulin Human Regular 100 units/ml vial SC SCH (22:10)
[2018-06-25 22:34] LABS: TROPONIN I 0.116 ng/mL (0.00-0.120)
[2018-06-26 00:55] VITALS: RESP 20
[2018-06-26 03:38] LABS: SQUAMOUS EPITHIAL 4 /hpf (0-5); URINE BILIRUBIN NEGATIVE (NEGATIVE); URINE BLOOD NEGATIVE (NEGATIVE); URINE CLARITY Clear (Clear); URINE COLOR Yellow (YELLOW); URINE GLUCOSE (UA) NORMAL (Normal); URINE LEUKOCYTE ESTERASE 1+ Leu/uL (Negative); URINE PROTEIN NEGATIVE (NEGATIVE); URINE UROBILINOGEN NORMAL mg/dL (0.2-1.0)
[2018-06-26 04:18] VITALS: O2SAT 96
[2018-06-26 04:20] LABS: BASO # 0.1 K/uL (0.0-0.2); EOS # 0.3 K/uL (0.0-0.7); EOS % 3.7 % (0.0-4.0); LYMPH # 0.8 K/uL (1.0-4.3); LYMPH % 10.7 % (20.0-40.0); MEAN CELL VOLUME 80.4 fL (81.0-99.0); MEAN CORPUSCULAR HEMOGLOBIN 23.7 pg (27.0-31.0); MEAN CORPUSCULAR HGB CONC 29.5 g/dL (33.0-37.0); MEAN PLATELET VOLUME 8.1 fL (7.2-11.7); MONO # 0.4 K/uL (0.0-0.8); MONO % 5.9 % (0.0-10.0); NEUT # 5.7 K/uL (1.8-7.0); NEUT % 78.7 % (50.0-75.0); NRBC % 0.1 % (0.0-2.0); RBC 3.7 Mil/uL (3.80-5.20); RED CELL DISTRIBUTION WIDTH 22.9 % (11.5-14.5); WHITE BLOOD COUNT 7.3 K/uL (4.8-10.8)
[2018-06-26 04:40] LABS: TROPONIN I 0.072 ng/mL (0.00-0.120)
[2018-06-26 04:51] LABS: HEMOGLOBIN 8.8 g/dL (11.0-16.0)
[2018-06-26 05:16] LABS: ALBUMIN 3.2 g/dL (3.5-5.0); CALCIUM 8.4 mg/dl (8.6-10.4)
[2018-06-26 08:11] VITALS: TEMP 98
[2018-06-26 08:21] LABS: ARTERIAL BLOOD GAS HCO3 30.4 mmol/L (21-28); ARTERIAL BLOOD GAS HEMOGLOBIN 8.5 g/dL (11.7-17.4); ARTERIAL BLOOD GAS O2 SAT 98.5 % (95-98); ARTERIAL BLOOD GAS PCO2 69 mm/Hg (35-45); ARTERIAL BLOOD GAS PH 7.31 (7.35-7.45); ARTERIAL BLOOD GAS PO2 98 mm/Hg (80-100); ARTERIAL BLOOD GAS TCO2 36.8 mmol/L (22-28)
[2018-06-26] MEDS: (Novolin R) Insulin Human Regular 100 units/ml vial SC SCH ×2 (08:28→12:39)
[2018-06-26] MEDS ORDERED: cefTRIAXone IV 1 gm in Dextros 50 ML IVPB SCH (10:00)
--- NOTE | 2018-06-26 10:31 | CP.PCM.PN ---
Subjective - Date & Time of Evaluation Date of Evaluation: 06/26/18 Time of Evaluation: 10:31 Objective - Vital Signs/Intake and Output Vital Signs (last 24 hours): Temp Pulse Resp BP Pulse Ox 98.0 F 83 20 134/57 L 96 06/26/18 07:00 06/26/18 07:41 06/26/18 07:00 06/26/18 07:00 06/26/18 07:00 Intake and Output: 06/26/18 06/26/18 06:59 18:59 Intake Total 500 Output Total 400 Balance 100 - Medications Medications: Current Medications Aspirin (Ecotrin) 81 mg PO DAILY [facility] Clopidogrel Bisulfate (Plavix) 75 mg PO DAILY [facility] Dextrose (Dextrose 50% Inj) 0 ml IV STAT PRN; Protocol PRN Reason: Hypoglycemia Protocol Dextrose (Glutose 15) 0 gm PO ONCE PRN; Protocol PRN Reason: Hypoglycemia Protocol Furosemide (Lasix) 40 mg PO DAILY [facility] Glucagon (Glucagen Diagnostic Kit) 0 mg IM STAT PRN; Protocol PRN Reason: Hypoglycemia Protocol Heparin Sodium (Porcine) (Heparin) 5,000 units SC Q8 [facility] Last Admin: 06/26/18 06:04 Dose: 5,000 units Sodium Chloride (Sodium Chloride 0.9%) 1,000 mls @ 50 mls/hr IV .Q20H [facility] Last Admin: 06/25/18 22:06 Dose: 50 mls/hr Dextrose (Dextrose 5% In Water 1000 Ml) 1,000 mls @ 0 mls/hr IV .Q0M PRN; Protocol PRN Reason: Hypoglycemia Protocol Ceftriaxone Sodium (Rocephin Iv 1 Gm Duplex) 50 mls @ 100 mls/hr IVPB DAILY [facility]; Protocol Insulin Human Regular (Novolin R) 0 unit SC ACHS [facility]; Protocol Last Admin: 06/26/18 08:28 Dose: 2 units Isosorbide Mononitrate (Imdur) 120 mg PO DAILY [facility] Losartan Potassium (Cozaar) 50 mg PO DAILY [facility] Metoprolol Tartrate (Lopressor) 50 mg PO BID [facility] Pneumococcal Polyvalent Vaccine (Pneumovax 23 Vaccine) 0.5 ml IM .ONCE ONE Stop: 06/27/18 10:01 Rosuvastatin Calcium (Crestor) 5 mg PO HS [facility] Last Admin: 06/25/18 22:03 Dose: 5 mg - Labs Labs: 06/26/18 04:14 06/26/18 04:14 PT 11.8 SECONDS (9.7-12.2) 06/25/18 16:21 INR 1.1 06/25/18 16:21 APTT 27 SECONDS (21-34) 06/25/18 16:21
[2018-06-26 11:16] VITALS: BP 130/64
--- NOTE | 2018-06-26 11:51 | CARD ---
APPROVED REPORT Date of service: 06/25/2018 EKG Measurement Heart [id number] <Conclusion> Normal sinus rhythm Possible Inferior infarct, age undetermined Abnormal ECG
--- NOTE | 2018-06-26 11:54 | CARD ---
APPROVED REPORT Date of service: 06/25/2018 EKG Measurement Heart [id number] <Conclusion> Normal sinus rhythm Possible Inferior infarct, age undetermined Abnormal ECG
--- NOTE | 2018-06-26 12:09 | CARD ---
APPROVED REPORT Date of service: 06/26/2018 EXAM: Two-dimensional and M-mode echocardiogram with Doppler and color Doppler. INDICATION Dizziness and Vertigo CAD Congestive Heart Failure COPD elevated troponin RISK FACTORS Hypertension Hyperlipidemia Diabetes 2D DIMENSIONS IVSd1.0 (0.7-1.1cm)LVDd4.4 (3.9-5.9cm) PWd1.0 (0.7-1.1cm)LA [id number] (18-58mL) LVDs2.9 (2.5-4.0cm)FS (%) 35.0 % LVEF (%)64.5 (>50%) M-Mode DIMENSIONS Left Atrium (MM)3.35 (2.5-4.0cm)IVSd1.13 (0.7-1.1cm) Aortic Root3.33 (2.2-3.7cm)LVDd5.03 (4.0-5.6cm) Aortic Cusp Exc.1.59 (1.5-2.0cm)PWd1.09 (0.7-1.1cm) FS (%) 29 %LVDs3.55 (2.0-3.8cm) LVEF (%)56 (>50%) Mitral Valve MV E Rkqcqexn330.2cm/sMV A Atwcpazi490.2cm/sE/A ratio1.3 TDI Lateral E' Peak V7.32cm/sMedial E' Peak V6.09cm/sE/Lateral E'18.2 E/Medial E'21.9 Tricuspid Valve TR Peak [id number]/sTR Peak [id number] LEFT VENTRICLE The left ventricle is normal size. There is normal left ventricular wall thickness. The left ventricular function is normal. The left ventricular ejection fraction is within the normal range. There is normal LV segmental wall motion. Transmitral Doppler flow pattern is Grade II-pseudonormal filling dynamics. RIGHT VENTRICLE The right ventricle is normal size. There is normal right ventricular wall thickness. The right ventricular systolic function is normal. ATRIA The left atrium size is normal. The right atrium size is normal. AORTIC VALVE The aortic valve is not well visualized. No aortic regurgitation is present. There is no aortic valvular stenosis. MITRAL VALVE The mitral valve is mildly thickened. There is no evidence of mitral valve prolapse. There is no mitral valve stenosis. Mitral regurgitation is trace to mild. TRICUSPID VALVE The tricuspid valve is normal in structure. There is mild tricuspid regurgitation. There is mild pulmonary hypertension. PULMONIC VALVE The pulmonary valve is normal in structure. There is no pulmonic valvular regurgitation. GREAT VESSELS The aortic root is normal in size. The IVC is normal in size and collapses >50% with inspiration. <Conclusion> There is normal left ventricular wall thickness. The left ventricular function is normal. The left ventricular ejection fraction is within the normal range. There is normal LV segmental wall motion. Transmitral Doppler flow pattern is Grade II-pseudonormal filling dynamics. There is no mitral valve stenosis. There is mild tricuspid regurgitation. There is mild pulmonary hypertension.
[2018-06-26 13:26] VITALS: PULSE 62
--- NOTE | 2018-06-26 13:53 | CP.PCM.CON ---
History of Present Illness - History of Present Illness History of Present Illness: Podiatry consult note for Dr. Avery 82 year old female with PMHx of CAD s/p stent(2013) on Plavix, HTN, HLD, DM, gout, asthma/COPD who presents to ED with complaints of left great toe pain and body aches sustained 2/2 falls over the past 3 days. Pt reports she sustained 1 fall getting out of bed 3 days ago. Patient's daughter is present at bedside and states pain started 2/2 podiatry cutting her nails. Patient's binding printer is in [place]. She then developed erythema and increasing discoloration and reports toe is painful. Pt denies dizziness, fevers/chills, chest pain, SOB, nausea, constipation. pmhx: CAD, DM, HTN, asthma, gout, arthritis, HLD pshx: stent(2013), cholecystectomy, Allergies: iodine Meds: plavix, ASA, lasix, Imdur, losartan, metoprolol, lipitor, allopurinol, glimepiride, metformin SocHx: Denies FamHx: unknown Review of Systems - Review of Systems All systems: reviewed and no additional remarkable complaints except Review of Systems: As per HPI Past Patient History - Infectious Disease Hx of Infectious Diseases: None - Tetanus Immunizations Tetanus Immunization: Unknown - Past Medical History & Family History Past Medical History?: Yes - Past Social History Smoking Status: Never Smoked - CARDIAC Hx Congestive Heart Failure: Yes Hx Hypercholesterolemia: Yes Hx Hypertension: Yes - PULMONARY Hx Asthma: Yes - NEUROLOGICAL Hx Neurological Disorder: No - HEENT Hx HEENT Problems: Yes Hx Cataracts: Yes (LASER SURGERY-CATARACT SX) - RENAL Hx Chronic Kidney Disease: Yes (Renal cyst) - ENDOCRINE/METABOLIC Hx Endocrine Disorders: Yes Hx Diabetes Mellitus Type 1: Yes (PER PATIENT TAKES INSULIN) - HEMATOLOGICAL/ONCOLOGICAL Hx Blood Disorders: No - INTEGUMENTARY Hx Dermatological Problems: No - MUSCULOSKELETAL/RHEUMATOLOGICAL Hx Arthritis: Yes - GASTROINTESTINAL Hx Gastrointestinal Disorders: (ABDOMINAL DISTENTION) - GENITOURINARY/GYNECOLOGICAL Hx Genitourinary Disorders: No - PSYCHIATRIC Hx Depression: No Hx Substance Use: No - SURGICAL HISTORY Hx Cholecystectomy: Yes Hx Coronary Stent: Yes - ANESTHESIA Hx Anesthesia: Yes Hx Anesthesia Reactions: No Hx Malignant Hyperthermia: No Meds Allergies/Adverse Reactions: Allergies Allergy/AdvReac Type Severity Reaction Status Date / Time iodine Allergy ANAPHYLAXIS Verified 06/25/18 15:13 - Medications Medications: Current Medications Acetaminophen (Tylenol 325mg Tab) 650 mg PO Q6 PRN PRN Reason: Pain, Mild (1-3) Last Admin: 06/26/18 12:40 Dose: 650 mg Aspirin (Ecotrin) 81 mg PO DAILY [facility] Last Admin: 06/26/18 11:15 Dose: 81 mg Clopidogrel Bisulfate (Plavix) 75 mg PO DAILY [facility] Last Admin: 06/26/18 11:14 Dose: 75 mg Dextrose (Dextrose 50% Inj) 0 ml IV STAT PRN; Protocol PRN Reason: Hypoglycemia Protocol Dextrose (Glutose 15) 0 gm PO ONCE PRN; Protocol PRN Reason: Hypoglycemia Protocol Furosemide (Lasix) 40 mg PO DAILY [facility] Last Admin: 06/26/18 11:15 Dose: 40 mg Glucagon (Glucagen Diagnostic Kit) 0 mg IM STAT PRN; Protocol PRN Reason: Hypoglycemia Protocol Heparin Sodium (Porcine) (Heparin) 5,000 units SC Q8 [facility] Last Admin: 06/26/18 06:04 Dose: 5,000 units Sodium Chloride (Sodium Chloride 0.9%) 1,000 mls @ 50 mls/hr IV .Q20H [facility] Last Admin: 06/25/18 22:06 Dose: 50 mls/hr Dextrose (Dextrose 5% In Water 1000 Ml) 1,000 mls @ 0 mls/hr IV .Q0M PRN; Protocol PRN Reason: Hypoglycemia Protocol Ceftriaxone Sodium (Rocephin Iv 1 Gm Duplex) 50 mls @ 100 mls/hr IVPB DAILY [facility]; Protocol Last Admin: 06/26/18 11:20 Dose: 100 mls/hr Insulin Human Regular (Novolin R) 0 unit SC ACHS [facility]; Protocol Last Admin: 06/26/18 12:39 Dose: 3 units Isosorbide Mononitrate (Imdur) 120 mg PO DAILY [facility] Last Admin: 06/26/18 11:14 Dose: 120 mg Losartan Potassium (Cozaar) 50 mg PO DAILY [facility] Last Admin: 06/26/18 11:14 Dose: 50 mg Metoprolol Tartrate (Lopressor) 50 mg PO BID [facility] Last Admin: 06/26/18 11:15 Dose: 50 mg Pneumococcal Polyvalent Vaccine (Pneumovax 23 Vaccine) 0.5 ml IM .ONCE ONE Stop: 06/27/18 10:01 Rosuvastatin Calcium (Crestor) 5 mg PO HS [facility] Last Admin: 06/25/18 22:03 Dose: 5 mg Physical Exam - Constitutional Appears: Well, Non-toxic, No Acute Distress - Head Exam Head Exam: ATRAUMATIC, NORMOCEPHALIC - Extremities Exam Additional comments: Left Lower Extremity Exam VASC: DP and PT 1/4 faintly palpable secondary to +2 pitting edema to the dorsum of the foot, TG warm at the left hallux, otherwise within normal limits NEURO: grossly intact DERM: erythema noted to the left hallucal toenail, no drainage, no open wounds, dry blood noted at the nail bed, nail not lifting at this time, no malodor, no probe to bone, no other clinical signs of infection ORTHO: no pain with range of motion or palpation - Neurological Exam Neurological exam: Alert, Oriented x3 - Psychiatric Exam Psychiatric exam: Normal Affect, Normal Mood Results - Vital Signs Recent Vital Signs: Last Vital Signs Temp 98.0 F 06/26/18 07:00 Pulse 62 06/26/18 12:39 Resp 20 06/26/18 07:00 BP 130/64 06/26/18 11:15 Pulse Ox 96 06/26/18 07:00 - Labs Result Diagrams: 06/26/18 04:14 06/26/18 04:14 Labs: Laboratory Results - last 24 hr 06/25/18 06/25/18 06/25/18 16:21 16:21 16:21 WBC 8.3 RBC 4.07 Hgb 9.6 L Hct 31.6 L MCV 77.6 L MCH 23.6 L MCHC 30.3 L RDW 23.1 H Plt Count 256 MPV 8.0 Neut % (Auto) 82.0 H Lymph % (Auto) 10.0 L Gordon % (Auto) 4.9 Eos % (Auto) 2.2 Baso % (Auto) 0.9 Neut # (Auto) 6.8 Lymph # (Auto) 0.8 L Gordon # (Auto) 0.4 Eos # (Auto) 0.2 Baso # (Auto) 0.1 PT 11.8 INR 1.1 APTT 27 Puncture Site pCO2 pO2 HCO3 ABG pH ABG Total CO2 ABG O2 Saturation ABG Base Excess ABG Hemoglobin ABG Carboxyhemoglobin POC ABG HHb (Measured) ABG Methemoglobin Anson Test A-a O2 Difference Respiratory Index Hgb O2 Saturation Liter Flow FiO2 Sodium 140 Potassium 4.2 Chloride 101 Carbon Dioxide 33 H Anion Gap 10 BUN 35 H Creatinine 1.5 H Est GFR ( Amer) 40 Est GFR (Non-Af Amer) 33 POC Glucose (mg/dL) Random Glucose 254 H D Hemoglobin A1c Calcium 8.8 Total Bilirubin 0.4 AST 14 ALT 16 Alkaline Phosphatase 103 Total Creatine Kinase 24 L CK-MB (Mass) 1.20 Troponin I 0.1370 H* NT-Pro-B Natriuret Pep Total Protein 6.8 Albumin 3.6 Globulin 3.2 Albumin/Globulin Ratio 1.1 Triglycerides Cholesterol LDL Cholesterol Direct HDL Cholesterol TSH 3rd Generation Urine Color Urine Clarity Urine pH Ur Specific [place] Urine Protein Urine Glucose (UA) Urine Ketones Urine Blood Urine Nitrate Urine Bilirubin Urine Urobilinogen Ur Leukocyte Esterase Urine WBC (Auto) Urine RBC (Auto) Ur Squamous Epith Cells Hyaline Casts 06/25/18 06/25/18 06/26/18 21:52 22:04 03:19 WBC RBC Hgb Hct MCV MCH MCHC RDW Plt Count MPV Neut % (Auto) Lymph % (Auto) Gordon % (Auto) Eos % (Auto) Baso % (Auto) Neut # (Auto) Lymph # (Auto) Gordon # (Auto) Eos # (Auto) Baso # (Auto) PT INR APTT Puncture Site pCO2 pO2 HCO3 ABG pH ABG Total CO2 ABG O2 Saturation ABG Base Excess ABG Hemoglobin ABG Carboxyhemoglobin POC ABG HHb (Measured) ABG Methemoglobin Anson Test A-a O2 Difference Respiratory Index Hgb O2 Saturation Liter Flow FiO2 Sodium Potassium Chloride Carbon Dioxide Anion Gap BUN Creatinine Est GFR ( Amer) Est GFR (Non-Af Amer) POC Glucose (mg/dL) 300 H Random Glucose Hemoglobin A1c Calcium Total Bilirubin AST ALT Alkaline Phosphatase Total Creatine Kinase CK-MB (Mass) Troponin I 0.1160 NT-Pro-B Natriuret Pep 3120 H Total Protein Albumin Globulin Albumin/Globulin Ratio Triglycerides Cholesterol LDL Cholesterol Direct HDL Cholesterol TSH 3rd Generation Urine Color Yellow Urine Clarity Clear Urine pH 5.0 Ur Specific [place] 1.011 Urine Protein Negative Urine Glucose (UA) Normal Urine Ketones Negative Urine Blood Negative Urine Nitrate Negative Urine Bilirubin Negative Urine Urobilinogen Normal Ur Leukocyte Esterase 1+ H Urine WBC (Auto) 23 H Urine RBC (Auto) 2 Ur Squamous Epith Cells 4 Hyaline Casts 6-10 H 06/26/18 06/26/18 06/26/18 04:14 04:14 04:14 WBC 7.3 RBC 3.70 L Hgb 8.8 L Hct 29.7 L MCV 80.4 L D MCH 23.7 L MCHC 29.5 L RDW 22.9 H Plt Count 250 MPV 8.1 Neut % (Auto) 78.7 H Lymph % (Auto) 10.7 L Gordon % (Auto) 5.9 Eos % (Auto) 3.7 Baso % (Auto) 1.0 Neut # (Auto) 5.7 Lymph # (Auto) 0.8 L Gordon # (Auto) 0.4 Eos # (Auto) 0.3 Baso # (Auto) 0.1 PT INR APTT Puncture Site pCO2 pO2 HCO3 ABG pH ABG Total CO2 ABG O2 Saturation ABG Base Excess ABG Hemoglobin ABG Carboxyhemoglobin POC ABG HHb (Measured) ABG Methemoglobin Anson Test A-a O2 Difference Respiratory Index Hgb O2 Saturation Liter Flow FiO2 Sodium 141 Potassium 4.3 Chloride 101 Carbon Dioxide 35 H Anion Gap 10 BUN 36 H Creatinine 1.7 H Est GFR ( Amer) 35 Est GFR (Non-Af Amer) 29 POC Glucose (mg/dL) Random Glucose 219 H Hemoglobin A1c 6.2 Calcium 8.4 L Total Bilirubin 0.3 AST 11 L D ALT 20 Alkaline Phosphatase 91 Total Creatine Kinase CK-MB (Mass) Troponin I 0.0720 NT-Pro-B Natriuret Pep Total Protein 6.3 Albumin 3.2 L Globulin 3.2 Albumin/Globulin Ratio 1.0 Triglycerides 104 Cholesterol 118 LDL Cholesterol Direct 65 HDL Cholesterol 31 TSH 3rd Generation 3.06 Urine Color Urine Clarity Urine pH Ur Specific [place] Urine Protein Urine Glucose (UA) Urine Ketones Urine Blood Urine Nitrate Urine Bilirubin Urine Urobilinogen Ur Leukocyte Esterase Urine WBC (Auto) Urine RBC (Auto) Ur Squamous Epith Cells Hyaline Casts 06/26/18 06/26/18 06/26/18 06:09 08:15 11:10 WBC RBC Hgb Hct MCV MCH MCHC RDW Plt Count MPV Neut % (Auto) Lymph % (Auto) Gordon % (Auto) Eos % (Auto) Baso % (Auto) Neut # (Auto) Lymph # (Auto) Gordon # (Auto) Eos # (Auto) Baso # (Auto) PT INR APTT Puncture Site Rb pCO2 69 H pO2 98 HCO3 30.4 H ABG pH 7.31 L ABG Total CO2 36.8 H ABG O2 Saturation 98.5 H ABG Base Excess 7.1 H ABG Hemoglobin 8.5 L ABG Carboxyhemoglobin 2.3 H POC ABG HHb (Measured) 1.4 ABG Methemoglobin 1.5 Anson Test Na A-a O2 Difference 15.0 Respiratory Index 0.2 Hgb O2 Saturation 94.7 L Liter Flow 2.0 FiO2 28.0 Sodium Potassium Chloride Carbon Dioxide Anion Gap BUN Creatinine Est GFR ( Amer) Est GFR (Non-Af Amer) POC Glucose (mg/dL) 187 H 212 H Random Glucose Hemoglobin A1c Calcium Total Bilirubin AST ALT Alkaline Phosphatase Total Creatine Kinase CK-MB (Mass) Troponin I NT-Pro-B Natriuret Pep Total Protein Albumin Globulin Albumin/Globulin Ratio Triglycerides Cholesterol LDL Cholesterol Direct HDL Cholesterol TSH 3rd Generation Urine Color Urine Clarity Urine pH Ur Specific [place] Urine Protein Urine Glucose (UA) Urine Ketones Urine Blood Urine Nitrate Urine Bilirubin Urine Urobilinogen Ur Leukocyte Esterase Urine WBC (Auto) Urine RBC (Auto) Ur Squamous Epith Cells Hyaline Casts Assessment & Plan - Assessment and Plan (Free Text) Assessment: 82 y/o female patient seen and evaluated for left hallucal nail cellulitis Plan: Patient seen and evaluated for Dr. Avery Plan discussed with Dr. Avery Chart, labs and vitals reviewed- afebrile, absent leukocytosis Ordered left foot x-ray to r/o fracture No dressing at this time Continue IV Abx Podiatry will continue to follow while in house Thank you for the podiatry consult - Date & Time Date: 06/26/18 Time: 14:07
--- NOTE | 2018-06-26 16:56 | RAD ---
PROCEDURE: Left Foot Radiographs. HISTORY: left hallucal cellulitis r/o frx COMPARISON: None available. FINDINGS: BONES: Osseous demineralization limits evaluation for acute fracture lines. Linear lucency noted at the base of the 1st distal phalanx extending intraarticularly on the lateral aspect; this is favored to represent vascular groove however nondisplaced fracture cannot be excluded. Correlate with physical exam. JOINTS: No dislocation. SOFT TISSUES: Soft tissue swelling. No evidence of radiopaque foreign body. OTHER FINDINGS: None. IMPRESSION: Soft tissue swelling. Osseous demineralization limits evaluation for acute fracture lines. Linear lucency noted at the base of the 1st distal phalanx extending intraarticularly on the lateral aspect; this is favored to represent vascular groove however nondisplaced fracture cannot be excluded. Correlate with physical exam.
--- NOTE | 2018-06-26 22:27 | CP.PCM.DIS ---
Provider - Provider Date of Admission: 06/25/18 18:55 Attending physician: Ry Ferris MD Consults: 06/25/18 20:59 Nursing Referral for Wound Care Routine Comment: Physician Instructions: Reason For Exam: open and healing skin tears on BLE 06/26/18 01:28 Podiatry Consult Routine Comment: Consulting Provider: Tawnya Avery Consulting Physician: Tawnya Avery Reason for Consult: left great toe erythema/discoloration Time Spent in preparation of Discharge (in minutes): 35 Hospital Course - Lab Results Lab Results: Most Recent Lab Values WBC 7.3 K/uL (4.8-10.8) 06/26/18 04:14 RBC 3.70 Mil/uL (3.80-5.20) L 06/26/18 04:14 Hgb 8.8 g/dL (11.0-16.0) L 06/26/18 04:14 Hct 29.7 % (34.0-47.0) L 06/26/18 04:14 MCV 80.4 fL (81.0-99.0) L D 06/26/18 04:14 MCH 23.7 pg (27.0-31.0) L 06/26/18 04:14 MCHC 29.5 g/dL (33.0-37.0) L 06/26/18 04:14 RDW 22.9 % (11.5-14.5) H 06/26/18 04:14 Plt Count 250 K/uL (130-400) 06/26/18 04:14 MPV 8.1 fL (7.2-11.7) 06/26/18 04:14 Neut % (Auto) 78.7 % (50.0-75.0) H 06/26/18 04:14 Lymph % (Auto) 10.7 % (20.0-40.0) L 06/26/18 04:14 [place] % (Auto) 5.9 % (0.0-10.0) 06/26/18 04:14 Eos % (Auto) 3.7 % (0.0-4.0) 06/26/18 04:14 Baso % (Auto) 1.0 % (0.0-2.0) 06/26/18 04:14 Neut # (Auto) 5.7 K/uL (1.8-7.0) 06/26/18 04:14 Lymph # (Auto) 0.8 K/uL (1.0-4.3) L 06/26/18 04:14 [place] # (Auto) 0.4 K/uL (0.0-0.8) 06/26/18 04:14 Eos # (Auto) 0.3 K/uL (0.0-0.7) 06/26/18 04:14 Baso # (Auto) 0.1 K/uL (0.0-0.2) 06/26/18 04:14 PT 11.8 SECONDS (9.7-12.2) 06/25/18 16:21 INR 1.1 06/25/18 16:21 APTT 27 SECONDS (21-34) 06/25/18 16:21 Puncture Site Rb 06/26/18 08:15 pCO2 69 mm/Hg (35-45) H 06/26/18 08:15 pO2 98 mm/Hg (80-100) 06/26/18 08:15 HCO3 30.4 mmol/L (21-28) H 06/26/18 08:15 ABG pH 7.31 (7.35-7.45) L 06/26/18 08:15 ABG Total CO2 36.8 mmol/L (22-28) H 06/26/18 08:15 ABG O2 Saturation 98.5 % (95-98) H 06/26/18 08:15 ABG Base Excess 7.1 mmol/L (-2.0-3.0) H 06/26/18 08:15 ABG Hemoglobin 8.5 g/dL (11.7-17.4) L 06/26/18 08:15 ABG Carboxyhemoglobin 2.3 % (0.5-1.5) H 06/26/18 08:15 POC ABG HHb (Measured) 1.4 % (0.0-5.0) 06/26/18 08:15 ABG Methemoglobin 1.5 % (0.0-3.0) 06/26/18 08:15 [place] Test Na 06/26/18 08:15 A-a O2 Difference 15.0 mm/Hg 06/26/18 08:15 Respiratory Index 0.2 06/26/18 08:15 Hgb O2 Saturation 94.7 % (95.0-98.0) L 06/26/18 08:15 Liter Flow 2.0 06/26/18 08:15 FiO2 28.0 % 06/26/18 08:15 Sodium 141 mmol/L (132-148) 06/26/18 04:14 Potassium 4.3 mmol/L (3.6-5.2) 06/26/18 04:14 Chloride 101 mmol/L (98-107) 06/26/18 04:14 Carbon Dioxide 35 mmol/L (22-30) H 06/26/18 04:14 Anion Gap 10 (10-20) 06/26/18 04:14 BUN 36 mg/dL (7-17) H 06/26/18 04:14 Creatinine 1.7 mg/dL (0.7-1.2) H 06/26/18 04:14 Est GFR ( Amer) 35 06/26/18 04:14 Est GFR (Non-Af Amer) 29 06/26/18 04:14 POC Glucose (mg/dL) 212 mg/dL (65-110) H 06/26/18 11:10 Random Glucose 219 mg/dL (65-105) H 06/26/18 04:14 Hemoglobin A1c 6.2 % (4.2-6.5) 06/26/18 04:14 Calcium 8.4 mg/dl (8.6-10.4) L 06/26/18 04:14 Total Bilirubin 0.3 mg/dL (0.2-1.3) 06/26/18 04:14 AST 11 U/L (14-36) L D 06/26/18 04:14 ALT 20 U/L (9-52) 06/26/18 04:14 Alkaline Phosphatase 91 U/L (38-126) 06/26/18 04:14 Total Creatine Kinase 24 U/L (30-135) L 06/25/18 16:21 CK-MB (Mass) 1.20 ng/mL (0.0-3.38) 06/25/18 16:21 Troponin I 0.0720 ng/mL (0.00-0.120) 06/26/18 04:14 NT-Pro-B Natriuret Pep 3120 pg/mL (0-900) H 06/25/18 21:52 Total Protein 6.3 g/dL (6.3-8.3) 06/26/18 04:14 Albumin 3.2 g/dL (3.5-5.0) L 06/26/18 04:14 Globulin 3.2 gm/dL (2.2-3.9) 06/26/18 04:14 Albumin/Globulin Ratio 1.0 (1.0-2.1) 06/26/18 04:14 Triglycerides 104 mg/dL (0-149) 06/26/18 04:14 Cholesterol 118 mg/dL (0-199) 06/26/18 04:14 LDL Cholesterol Direct 65 mg/dL (0-129) 06/26/18 04:14 HDL Cholesterol 31 mg/dL (30-70) 06/26/18 04:14 TSH 3rd Generation 3.06 mIU/L (0.46-4.68) 06/26/18 04:14 Urine Color Yellow (YELLOW) 06/26/18 03:19 Urine Clarity Clear (Clear) 06/26/18 03:19 Urine pH 5.0 (5.0-8.0) 06/26/18 03:19 Ur Specific [place] 1.011 (1.003-1.030) 06/26/18 03:19 Urine Protein Negative mg/dL (NEGATIVE) 06/26/18 03:19 Urine Glucose (UA) Normal mg/dL (Normal) 06/26/18 03:19 Urine Ketones Negative mg/dL (NEGATIVE) 06/26/18 03:19 Urine Blood Negative (NEGATIVE) 06/26/18 03:19 Urine Nitrate Negative (NEGATIVE) 06/26/18 03:19 Urine Bilirubin Negative (NEGATIVE) 06/26/18 03:19 Urine Urobilinogen Normal mg/dL (0.2-1.0) 06/26/18 03:19 Ur Leukocyte Esterase 1+ Mena/uL (Negative) H 06/26/18 03:19 Urine WBC (Auto) 23 /hpf (0-5) H 06/26/18 03:19 Urine RBC (Auto) 2 /hpf (0-3) 06/26/18 03:19 Ur Squamous Epith Cells 4 /hpf (0-5) 06/26/18 03:19 Hyaline Casts 6-10 /lpf (0-2) H 06/26/18 03:19 - Hospital Course Hospital Course: On admission: Patient is an 82 year old female with pmhx of CAD s/p stent(2013) on Plavix, HTN, HLD, DM, gout, asthma/COPD who presents to ED with complaints of left great toe pain and body aches sustained 2/2 falls over the past 3 days. Pt reports she sustained 1 fall getting out of bed 3 days ago, denies LOC; and second fall sustained 2/2 vertigo/dizziness, also denying LOC. Patient reports injury to left chest/shoulder, right shoulder/back. Patient also reports left great toe pain 2/2 podiatry cutting her nails. She then developed erythema and increasing discoloration and reports toe is painful. Pt denies dizziness, fevers/chills, chest pain, SOB, nausea, constipation. Hospital Course: Patient admitted to Tele for frequent falls, possible CHF, and left toe pain and possible infection. L foot XRay 06/26: Soft tissue swelling. Osseous demineralization limits evaluation for acute fracture lines. Linear lucency noted at the base of the 1st distal phalanx extending intraarticularly on the lateral aspect; this is favored to represent vascular groove however nondisplaced fracture cannot be excluded. Correlate with physical exam. (see full report) Rocephin was started (06/25) for possible big toe infection. Patient complained of body pain secondary to frequent falls. R shoulder, R forearm Xray R humerus Xray, Orbit CT and head CT all negative for acute pathology. Preliminary report for arterial dopplers: R CRISTEL 0.57, L CRISTEL 1.10 Patient treated for possible CHF with Lasix. Echo showed EF of 64.5%. (See full report) Patient and her daughter were anxious to be discharged. Patient and daughter were explained the risks of leaving against medical advice, including but not limited to worsening of condition and . Despite risks, patient's daughter decided to sign patient out AMA. Patient was given script for doxycycline 100mg BID for 7 days. Given surgical boot. Patient was instructed to take a probiotic for one month following antibiotic and to follow up with her PMD and private medical technician assistant. Discharge Exam - Head Exam Head Exam: ATRAUMATIC, NORMOCEPHALIC - Eye Exam Eye Exam: EOMI, PERRL - ENT Exam ENT Exam: Mucous Membranes Moist - Neck Exam Neck exam: Full Rom - Respiratory Exam Respiratory Exam: absent: Rales, Rhonchi, Wheezes - Cardiovascular Exam Cardiovascular Exam: REGULAR RHYTHM, +S1, +S2 - GI/Abdominal Exam GI & Abdominal Exam: Distended, Firm, Normal Bowel Sounds. absent: Guarding, Rebound, Tenderness - Extremities Exam Additional comments: Tenderness to palpation of R shoulder and R forearm. ROM intact. No bruising noted. Left toe ecchymotic with subungal hemorrhage. Tender to palpation. Bilateral lower extremity swelling. - Neurological Exam Neurological exam: Alert, Oriented x3 - Psychiatric Exam Psychiatric exam: Normal Affect, Normal Mood - Skin Skin Exam: Dry, Warm Discharge Plan - Discharge Medications Prescriptions: Doxycycline Monohydrate 100 mg PO BID #14 tablet - Follow Up Plan Condition: FAIR Disposition: AGAINST MEDICAL ADVICE Additional Instructions: Patient is signing out against medical advice. Please be advised you have a fracture of the L great toe. You must follow up with either your private medical technician assistant or Dr. Avery, podiatry, in the [facility]. You will be given a surgical shoe. You will receive a prescription for doxycycline 100mg Twice daily (8AM and 8PM with breakfast and dinner) for 7 days You must take an over the counter probiotic for one month following antibiotic course. Return to Emergency Room if symptoms worsen.
[2018-06-27] MEDS ORDERED: Pneumococcal 23-Valent Vaccine IM ONE (10:00)
--- NOTE | 2018-06-28 12:03 | VASCLAB ---
Date of service: 06/26/2018 STUDY DESCRIPTION: Lower Extremity Arterial Exam (PVR). HISTORY: please eval for PVD Left 2nd toe discoloration PRIORS: None. TECHNIQUE: Pulse volume recording waveforms and segmental pressures of bilateral lower extremities at multiple levels were obtained. Ankle Brachial Indices (ABIs) were calculated. Report prepared by Juan David Ortega RVT RIGHT LOWER EXTREMITY: * Brachial artery: Pressure - 151 mmHg. * High thigh: Pressure - 151 mmHg: Ratio - 0.96: PVR waveform - Pulsatile * Low thigh: Pressure - 141 mmHg: Ratio - 0.90 PVR waveform: Pulsatile * Calf: Pressure - 135 mmHg: Ratio - 0.86 PVR waveform: Pulsatile * Posterior tibial Artery: Pressure - 71 mmHg: Ratio - 0.45 PVR waveform: Pulsatile * Dorsalis pedis Artery: Pressure - 90 mmHg: Ratio - 0.57 PVR waveform: Pulsatile * Great toe: Pressure - 45 mmHg: Ratio - 0.29 PVR waveform: Pulsatile Ankle brachial index (CRISTEL): 0.57 LEFT LOWER EXTREMITY: * Brachial artery: Pressure - 157 mmHg. * High thigh: Pressure - 217 mmHg: Ratio - 1.38: PVR waveform - Pulsatile * Low thigh: Pressure - 181 mmHg: Ratio - 1.15 PVR waveform: Pulsatile * Calf: Pressure - 196 mmHg: Ratio - 1.25 PVR waveform: Pulsatile * Posterior tibial Artery: Pressure - 113 mmHg: Ratio - 0.72 PVR waveform: Pulsatile * Dorsalis pedis Artery: Pressure - 173 mmHg: Ratio - 1.10 PVR waveform: Pulsatile * Great toe: Pressure - 59 mmHg: Ratio - 0.38 PVR waveform: Pulsatile Ankle brachial index (CRISTEL): 1.10 OTHER FINDINGS: Right: TBI 0.29. Left: TBI 0.38. IMPRESSION: Right: Based on CRISTEL, there moderate hemodynamically significant arterial insufficiency in the right lower extremity. TBI is also decreased and consistent with moderate arterial insufficiency. Left: Based on CRISTEL, there was no evidence of hemodynamically significant arterial insufficiency in the LEFT lower extremity. TBI is decreased and consistent with moderate arterial insufficiency.
== END 2018-06-26 17:23 | disposition left against medical advice (07) ==
LOC: C.ER 15:03 → C.9E 18:55 → C.6T 19:53
PROVIDERS: ADMIT Family Medicine; ATTEND Family Medicine
DX: L03.039 Cellulitis of unspecified toe (principal); S92.405A Nondisplaced unspecified fracture of left great toe, initial encounter for closed fracture; W06.XXXA Fall from bed, initial encounter; E10.22 Type 1 diabetes mellitus with diabetic chronic kidney disease; E78.00 Pure hypercholesterolemia, unspecified; E78.5 Hyperlipidemia, unspecified; I13.0 Hypertensive heart and chronic kidney disease with heart failure and stage 1 through stage 4 chronic kidney disease, or unspecified chronic kidney disease; I50.9 Heart failure, unspecified; I25.10 Atherosclerotic heart disease of native coronary artery without angina pectoris; I77.1 Stricture of artery; J32.2 Chronic ethmoidal sinusitis; J44.9 Chronic obstructive pulmonary disease, unspecified; M10.9 Gout, unspecified; N18.9 Chronic kidney disease, unspecified; R29.6 Repeated falls; Z79.4 Long term (current) use of insulin
CPT/HCPCS: 36415; 70450; 70480; 71045; 73030; 73060; 73090; 73630; 80053; 80061; 81001; 82550; 82553; 82803; 82948; 83036; 83880; 84443; 84484; 85025; 85610; 85730; 93005; 93306; 93923; 96365; 96375; 97162; 97530; 99285; G0378; G8978; G8979; J0696; J1644; J1885; J7030